=== PATIENT | male | born 1950 | race Caucasian/White ===

== ENCOUNTER → 2017-08-24 11:14 | Outpatient (CLI) | payer MEDICARE, OTHER, SELFPAY ==
[2017-08-24 13:02] LABS: Hemoglobin A1c 7.5 % (4.2-6.3)
[2017-08-24 13:22] LABS: AST(SGOT) 17 U/L (15-37); Alanine Aminotransfer ALT/SGPT 36 U/L (16-61); Albumin, Serum 3.8 g/dL (3.2-5.0); Alkaline Phosphatase 61 U/L (45-117); Anion Gap 8 (5-15); BUN 21 mg/dL (7-18); BUN/Creat Ratio 21.3 RATIO (10-20); Calcium,Total 8.6 mg/dL (8.5-10.1); Chloride 103 mmol/L (98-107); Cholesterol 200 mg/dL (200); Creatinine, Serum 0.99 mg/dL (0.70-1.30); EST Glomerular Filtration Rate 80 mL/min (>60); Est Glom Filt Rate - Afr Amer 97 mL/min (>60); Globulin 3.9 g/dL (2.2-4.2); Glucose 145 mg/dL (74-106); High Density Lipoprotein 35 mg/dL; PSA,Total- Diagnostic 8.58 ng/mL (0.0-4.0); Potassium 4.2 mmol/L (3.5-5.1); Protein, Total 7.7 g/dL (6.4-8.2); Sodium Level 137 mmol/L (136-145); Triglycerides 424 mg/dL
[2017-08-24 14:04] LABS: Microalbumin,Random Urine < 5.0 mg/L (NO RANGE EST.)
== END ==
PROVIDERS: Family Provider Family Medicine; PCP Family Medicine; Visit Provider Nurse Practitioner
DX: E11.9 Type 2 diabetes mellitus without complications (principal); R97.20 Elevated prostate specific antigen [PSA]
CPT/HCPCS: 36415; 80053; 80061; 82043; 82570; 83036; 84153

== ENCOUNTER → 2017-10-06 06:25 | Outpatient (CLI) | payer MEDICARE, OTHER, SELFPAY ==
--- NOTE | 2017-10-06 07:00 | MRI_ITS ---
STUDY: MR PELVIS WITH T WITHOUT CONTRAST REASON FOR EXAM: Male, 66 years old. ELEVATED PROSTATE SPECIFIC ANTIGEN TECHNIQUE: Standardized fat and water weighted pulse sequences were obtained in all 3 orthogonal planes, pre-and post contrast administration. 11 ml of Gadavist contrast material was administered intravenously for the contrast portion of the examination. COMPARISON: None. FINDINGS: Normal urinary bladder. Normal visualized colon. Prostate gland: The anterior fibromuscular stroma and central zone appear intact. The central gland demonstrates normal signal characteristics. Rectum is unremarkable. Levator ani muscle is not disrupted. The distal urethra is surrounded by the low T2 signal intensity muscle which is the external urethral sphincter as noted on the coronal images. The penile bulb is embraced by an intact inferomedial levator ani muscle. No areas of abnormal enhancement. Normal visualized neurovascular bundles. Diffuse enlargement of the prostate gland. There is heterogeneous enhancement of the prostate gland. There is no pelvic fluid. There is no pelvic mass lesion or lymphadenopathy. Normal visualized pelvic arteries. Normal osseous structures. Normal abdominal wall. MRI/Pelvis W/WO Contrast IMPRESSION: Prostatomegaly. No evidence for neoplasm. Electronically Signed: Rich Parikh MD at 23:36 EDT , Service support ,
== END ==
PROVIDERS: Family Provider Family Medicine; PCP Family Medicine; Visit Provider Urology
DX: R97.20 Elevated prostate specific antigen [PSA] (principal)
CPT/HCPCS: 72197; A9585

== ENCOUNTER → 2017-10-13 15:53 | Outpatient (CLI) | payer MEDICARE, OTHER, SELFPAY ==
--- NOTE | 2017-10-13 | IMM_PTH ---
PATIENT: TESHA KELLEY LOC: [place] U#:[id number] AGE/SX: 74/M ROOM: RE10/13/[address]: Dr. Galen Chacko MD : 1950 BED: DIS: SPEC #: [id number] RECD: 10/17/17 14:03 STATUS: RONNY REQi #: [id number] BARRETT: 10/13/17 00:[address]: Galen Chacko DEPT: IMMUNOHISTOCHEMISTRY RECD BY: Jodee Kerr ENTERED: 10/17/17 14:05 SP TYPE: IMMUNO OTHR DR: Dr. Rafael Doe MD Tissues: A - PROSTATE RIGHT C - PROSTATE RIGHT D - PROSTATE LEFT E - PROSTATE LEFT Procedures: 34BE12 (add) P40 (add) 34BE12 (initial) PHYSICIAN & INSTITUTION [place] [id number] SPECIMEN INFORMATION: Tissue Source: A - Right base, C - Right apex, D - Left base, E - Left mid Clinical Info: BPH with obstruction, elevated PSA, frequency of urination, decreased force of stream Specimen Number: [id number] A, C, D & E CPT code: 37024, 97908 x7 METHODOLOGY: Deparaffinized sections of prefer/formalin-fixed tissue or PAP/DQ stained slides are incubated with monoclonal/polyclonal antibodies/oligonucleotide probes. Localization is made via biotin free immunoperoxidase method. Appropriate controls are performed and reacted as expected. Results on target cell population are indicated in the following table: RESULTS: ANTIBODY / CLONE RESULT Block A P40 (BC28) positive 34BE12 (34BE12) positive Block C P40 (BC28) negative 34BE12 (34BE12) negative Block D P40 (BC28) positive 34BE12 (34BE12) positive Block E P40 (BC28) positive 34BE12 (34BE12) positive These tests were developed and their performance characteristics determined by [facility]. They may not have been cleared or approved by the U.S. Food and Drug Administration. The FDA has determined that such clearance or approval is not necessary. INTERPRETATION: A. Right prostate, base, core biopsy: Focal high-grade prostatic intraepithelial neoplasia (HGPIN). C. Right prostate, apex, core biopsy: Focal atypical small acinar proliferation. D. Left prostate, base, core biopsy: Focal high-grade prostatic intraepithelial neoplasia (HGPIN). E. Left prostate, mid, core biopsy: Focal high-grade prostatic intraepithelial neoplasia (HGPIN). AM:rabia 10/18/17
--- NOTE | 2017-10-13 08:55 | PROSBIL_PTH ---
PATIENT: TESHA KELLEY LOC: [place] U#:[id number] AGE/SX: 74/M ROOM: RE10/13/[address]: Dr. Galen Chacko MD : 1950 BED: DIS: SPEC #: [id number] RECD: 10/13/17 15:24 STATUS: RONNY GILLIAN #: [id number] BARRETT: 10/13/17 08:[address]: Galen Chacko DEPT: SURGICAL PATHOLOGY RECD BY: Edgardo Arnold ENTERED: 10/16/17 10:11 SP TYPE: PROST BX ERNESTO DR: Dr. Rafael Doe MD [facility] Tissues: A - PROSTATE RIGHT B - PROSTATE RIGHT C - PROSTATE RIGHT D - PROSTATE LEFT E - PROSTATE LEFT F - PROSTATE LEFT Procedures: PROSTATE BX HEADER OPERATION: Transrectal ultrasound guided needle biopsy of prostate PRE-OP DIAGNOSIS: BPH with obstruction; elevated PSA; frequency of urination; decreased force of stream TISSUE SUBMITTED: A - Right base, B - Right mid, C - Right apex, D - Left base, E - Left mid, F - Left apex MICROSCOPIC DIAGNOSIS A. Right prostate, base, core biopsy: Focal high-grade prostatic intraepithelial neoplasia (HGPIN). Glandular atrophy, mild chronic inflammation and focal acute inflammation. B. Right prostate, mid, core biopsy: Focal glandular atrophy and mild chronic inflammation. C. Right prostate, apex, core biopsy: Focal atypical small acinar proliferation. D. Left prostate, base, core biopsy: Focal high-grade prostatic intraepithelial neoplasia (HGPIN). Mild chronic inflammation. E. Left prostate, mid, core biopsy: Focal high-grade prostatic intraepithelial neoplasia (HGPIN). Focal glandular atrophy and mild chronic inflammation. F. Left prostate, apex, core biopsy: Focal glandular atrophy and mild chronic inflammation. AM:rabia 10/17/17 COMMENT A, C, D & E - Immunohistochemistry ([id number]) supports the above diagnosis. MICROSCOPIC DESCRIPTION Slides are reviewed. GROSS DESCRIPTION A - Received is one container labeled with the patient's name and not further designated. The specimen consists of two elongated fragments of light neely-white soft tissue each measuring 1.5 cm in length and 0.1 cm in diameter. The specimen is totally submitted in one cassette. B - Received is one container labeled with the patient's name and not further designated. The specimen consists of two elongated fragments of light neely-white soft tissue each measuring 1.5 cm in length and 0.1 cm in diameter. The specimen is totally submitted in one cassette. C - Received is one container labeled with the patient's name and not further designated. The specimen consists of two elongated fragments of light neely-white soft tissue each measuring 1 cm in length and 0.1 cm in diameter. The specimen is totally submitted in one cassette. D - Received is one container labeled with the patient's name and not further designated. The specimen consists of two elongated fragments of light neely-white soft tissue each measuring 1 cm in length and 0.1 cm in diameter. The specimen is totally submitted in one cassette. E - Received is one container labeled with the patient's name and not further designated. The specimen consists of two elongated fragments of light neely-white soft tissue each measuring 1.5 cm in length and 0.1 cm in diameter. The specimen is totally submitted in one cassette. F - Received is one container labeled with the patient's name and not further designated. The specimen consists of two elongated fragments of light neely-white soft tissue each measuring 1 cm in length and 0.1 cm in diameter. The specimen is totally submitted in one cassette. / AM:rabia 10/16/17 TC:3 CPT: G0146
== END ==
PROVIDERS: Family Provider Family Medicine; PCP Family Medicine; Visit Provider Urology
DX: N40.1 Benign prostatic hyperplasia with lower urinary tract symptoms (principal); N13.8 Other obstructive and reflux uropathy; R35.0 Frequency of micturition; R39.12 Poor urinary stream; R97.20 Elevated prostate specific antigen [PSA]
CPT/HCPCS: 88305; 88341; 88342; G0416

== ENCOUNTER → 2019-03-14 15:58 | Outpatient (CLI) | payer MEDICARE, OTHER, SELFPAY ==
[2018-03-27 13:31] VITALS: BMI 38.0
== END ==
PROVIDERS: Family Provider Family Medicine; PCP Family Medicine; Referring Provider Dermatology; Visit Provider Dermatology
DX: L60.0 Ingrowing nail (principal)
CPT/HCPCS: 87070; 87077; 87186; 87205

== ENCOUNTER → 2020-02-24 10:43 | Outpatient (CLI) | payer MEDICARE, OTHER, SELFPAY ==
[2020-01-08 09:55] VITALS: BMI 37.8
--- NOTE | 2020-02-24 10:44 | ECHOD_ITS ---
Reason For Study: Dyspnea/SOB Procedure This was a 2D Doppler, Color Flow transthoracic echocardiogram. Exam performed in department. Left Ventricle Normal LV size. Left ventricular systolic function is normal. The estimated ejection fraction is 60 %. Stage 1 diastolic dysfunction. No regional wall motion abnormalities noted. Right Ventricle Normal RV size. Normal systolic function. Atria Normal left atrium. Normal right atrium. Mitral Valve Normal mitral valve. Tricuspid Valve Normal tricuspid valve. Mild (1+) tricuspid valve insufficiency. Pulmonary artery systolic pressure is 28 mmHg. Aortic Valve Trisinus/trileaflet aortic valve. Pulmonic Valve Normal pulmonic valve. Great Vessels Normal aortic root. The pulmonary artery is normal size. Normal inferior vena cava. Pericardium/Pleural No pericardial effusion. MMode/2D Measurements & Calculations LVIDd: 5.5 cm IVSd: 1.0 cm Ao root diam: 3.3 cm LVIDs: 3.5 cm LVPWd: 1.1 cm RVDd: 3.0 cm FS: 35.3 % LAV(MOD-bp): 32.2 ml LVAd ap4: 27.7 cm2 SV(MOD-sp4): 53.5 ml LAV(MOD-bp) Indexed: 15.0 ml/m2 EDV(MOD-sp4): 80.3 ml LAV(MOD-sp2): 40.4 ml EDV(sp4-el): 85.1 ml LAV(MOD-sp4): 24.8 ml LVAs ap4: 14.5 cm2 ESV(MOD-sp4): 26.8 ml ESV(sp4-el): 27.3 ml EF(MOD-sp4): 66.7 % EF(sp4-el): 67.9 % SV(sp4-el): 57.8 ml LA A4 area: 12.4 cm2 LA dimension(2D): 3.7 cm RA A4 area: 10.0 cm2 Doppler Measurements & Calculations MV E max ranjit: 60.1 cm/sec Lat Peak E' Ranjit: 5.8 cm/sec Med Peak E' Ranjit: 3.8 cm/sec MV A max ranjit: 101.8 cm/sec E/E' lat: 10.3 E/E' med: 15.8 MV E/A: 0.59 Ao V2 max: 110.2 cm/sec LV V1 max: 84.2 cm/sec PA V2 max: 104.2 cm/sec Ao max P.9 mmHg LV V1 max P.8 mmHg Ao V2 mean: 73.8 cm/sec Ao mean P.4 mmHg Ao V2 VTI: 22.3 cm TR max ranjit: 247.0 cm/sec TR max P.4 mmHg Interpretation Summary Normal LV size. Left ventricular systolic function is normal. The estimated ejection fraction is 60 %. Stage 1 diastolic dysfunction. Pulmonary artery systolic pressure is 28 mmHg. Ordering Physician: Bo Tierney Referring Physician: Rafael Doe Performed By: Maeve Moralez RDCS, RVT
== END ==
PROVIDERS: PCP Family Medicine; Referring Provider Internal Medicine Cardiovascular Disease; Visit Provider Internal Medicine Cardiovascular Disease
DX: I10 Essential (primary) hypertension (principal); R06.00 Dyspnea, unspecified
CPT/HCPCS: 93306

== ENCOUNTER → 2020-08-04 13:01 | Outpatient (CLI) | payer MEDICARE, OTHER, SELFPAY ==
[2020-03-27 10:18] VITALS: BMI 37.9
--- NOTE | 2020-08-04 13:08 | RAD_ITS ---
STUDY: X-RAY - LUMBAR SPINE REASON FOR EXAM: Male, 69 years old. LOWER BACK PAIN, GETTING WORSE TECHNIQUE: 3 view(s) of the lumbar spine were obtained. COMPARISON: None FINDINGS: There is straightening of the normal lumbar lordosis. There is no substantial scoliosis. There is a normal alignment of the vertebrae. There is multilevel endplate spondylosis of the lumbar vertebrae. There is multi-level degenerative disc disease with multi-level disc space narrowing. Facet joint osteoarthritis. The soft tissue structures are unremarkable. RAD/Lumbar Spine 2 or 3 Views IMPRESSION: Degenerative changes of the spine, as detailed above. Straightening of the normal lumbar lordosis. Electronically Signed: Tommy Mendiola MD at 15:48 EST , Service support ,
== END ==
PROVIDERS: PCP Family Medicine; Referring Provider Family Medicine; Visit Provider Family Medicine
DX: M54.5 Low back pain (principal)
CPT/HCPCS: 72100

== ENCOUNTER → 2020-10-06 14:37 | Outpatient (CLI) | payer MEDICARE, OTHER, SELFPAY ==
[2020-03-27 10:18] VITALS: BMI 37.9
--- NOTE | 2020-10-06 15:00 | RAD_ITS ---
STUDY: X-RAY - LUMBOSACRAL SPINE REASON FOR EXAM: Male, 69 years old. Pain, numbness and weakness. TECHNIQUE: 6 view(s) of the lumbosacral spine including lateral flexion and extension views were obtained on 7 images. COMPARISON: 08/04/2020 FINDINGS: Normal lumbar lordosis. There is no substantial scoliosis. There is normal alignment of the vertebrae. Limited flexion and extension with no abnormal motion. Normal vertebral bodies and endplates. Diffuse facet sclerosis. Stable intervertebral disc space narrowing at L2-3, L3-4, L4-5 and to the greatest degree at L5-S1 with osteophyte formation most marked at L5-S1. Normal bilateral sacral ala, sacroiliac joints, and visualized sacrum. Vascular calcification. RAD/L/S Spine w Bend Min 6 Vw IMPRESSION: Stable diffuse moderate lumbar spondylosis most marked at L5-S1. Limited flexion and extension without abnormal motion. Electronically Signed: Migel Bergman MD at 12:42 EDT , Service support ,
[2020-10-06 16:27] LABS: Anion Gap 8 (5-15); BUN 17 mg/dL (7-18); BUN/Creat Ratio 12.9 RATIO (10-20); Calcium,Total 9.4 mg/dL (8.5-10.1); Chloride 101 mmol/L (98-107); Creatinine, Serum 1.32 mg/dL (0.70-1.30); EST Glomerular Filtration Rate 57 mL/min (>60); Est Glom Filt Rate - Afr Amer 69 mL/min (>60); Glucose 205 mg/dL (74-106); Potassium 4.4 mmol/L (3.5-5.1); Sodium Level 135 mmol/L (136-145)
--- NOTE | 2020-10-06 16:45 | MRI_ITS ---
STUDY: MRI LUMBAR SPINE WITHOUT CONTRAST REASON FOR EXAM: Male, 69 years old. Lumbar radiculopathy TECHNIQUE: Standardized fat and water weighted pulse sequences were obtained in the sagittal and axial planes. COMPARISON: Lumbar spine x-rays 10/06/2020 FINDINGS: No evidence for acute fracture or subluxation. Interosseous hemangioma within the L4 vertebral body T12-L1: Normal endplates. Normal disc height, desiccation and normal morphology. Normal bilateral facet joints. Normal central canal and bilateral lateral recesses. Normal bilateral intervertebral neural foramina. Normal lumbar lordosis. There is no substantial scoliosis. Normal conus medullaris that terminates at T12-L1 L1-2: Normal endplates. Normal disc height, desiccation and normal morphology. Normal bilateral facet joints. Normal central canal and bilateral lateral recesses. Normal bilateral intervertebral neural foramina. L2-3: Normal endplates. Normal disc height, desiccation and normal morphology. Normal bilateral facet joints. Normal central canal and bilateral lateral recesses. Normal bilateral intervertebral neural foramina. L3-4: Normal endplates. Normal disc height, desiccation and minor annular bulge.. Facet arthropathy and thickening of ligamenta flava.. Normal central canal and mild bilateral recess stenosis. Moderate bilateral neuroforaminal stenosis exaggerated by shortened pedicles L4-5: Grade 1 spondylolisthesis Normal endplates. Normal disc height, desiccation and minor bulging disc osteophyte complex. Facet arthropathy and thickening of ligamenta flava.. Moderate narrowing the central canal.. Severe bilateral recess and neuroforaminal stenosis exaggerated by shortened pedicles L5-S1: Degenerative endplate changes. Narrowed disc space with desiccation of disc and mild bulging disc osteophyte complex. Bilateral facet arthropathy. Mild narrowing the central canal. Moderate bilateral recess and severe neuroforaminal stenosis exaggerated by shortened pedicles.. Normal visualized sacral ala. Normal visualized paraspinous soft tissue structures. Findings are similar to prior study given differences in imaging modalities MRI/Spine Lumbar (Routine) IMPRESSION: No evidence for acute fracture or other significant bony pathology. Moderate spondylosis and multilevel spinal stenosis secondary to disc disease and bony hypertrophy most severe at L4-5 and L5-S1 exaggerated by shortened pedicles Electronically Signed: Hugo Smith MD at 16:24 EDT , Service support ,
== END ==
PROVIDERS: Physician Assistant Medical; PCP Family Medicine
DX: M54.16 Radiculopathy, lumbar region (principal); I10 Essential (primary) hypertension; E78.5 Hyperlipidemia, unspecified; R06.00 Dyspnea, unspecified
CPT/HCPCS: 36415; 72110; 72114; 72148; 80048

== ENCOUNTER 2021-07-27 06:35 | Outpatient (CLI) | payer MEDICARE, OTHER, SELFPAY ==
[2021-07-27 07:38] LABS: Absolute Lymphocyte Count 2.77 X10^3/uL (0.83-4.51); Basophil# 0.07 X10^3/uL; Basophil% 0.9 % (0-1); Eosinophil# 0.26 X10^3/uL; Eosinophils% 3.3 % (0-5); Hemoglobin 13.6 g/dL (13.0-16.5); Lymphocyte # 2.77 X10^3/ul (0.83-4.51); Lymphocyte % 35.6 % (19-41); Mean Corp Hgb Conc 33.2 g/dL (32-36); Mean Corpuscular Hgb 28.8 pg (27.0-32.0); Mean Corpuscular Volume 86.7 fL (80-94); Mean Platelet Vol. 10.3 fl (6.2-12.0); Monocyte# 0.62 X10^3/uL; NRBC Flagged by Analyzer 0 % (0-5); Neutrophil # 4.01 X10^3/uL (2.7-7.7); Neutrophil % 51.6 % (47-70); Platelet Count 244 K/mm3 (150-450); RBC Distribution Width CV 14.1 % (11.6-14.6); RBC Distribution Width SD 45.1 fl (35.1-43.9); Red Blood Count 4.73 M/mm3 (4.6-6.2); White Blood Count 7.8 K/mm3 (4.4-11.0)
[2021-07-27 08:14] LABS: AST(SGOT) 19 U/L (15-37); Alanine Aminotransfer ALT/SGPT 42 U/L (16-61); Albumin, Serum 3.7 g/dL (3.2-5.0); Alkaline Phosphatase 83 U/L (45-117); Anion Gap 5 (5-15); BUN 20 mg/dL (7-18); BUN/Creat Ratio 18.9 RATIO (10-20); Bilirubin, Direct 0.06 mg/dL (0.00-0.30); Calcium,Total 9.4 mg/dL (8.5-10.1); Chloride 101 mmol/L (98-107); Cholesterol 254 mg/dL (200); Creatinine, Serum 1.06 mg/dL (0.70-1.30); EST Glomerular Filtration Rate 73 mL/min (>60); Est Glom Filt Rate - Afr Amer 88 mL/min (>60); Globulin 4.1 g/dL (2.2-4.2); Glucose 254 mg/dL (74-106); High Density Lipoprotein 36 mg/dL; Potassium 4.2 mmol/L (3.5-5.1); Protein, Total 7.8 g/dL (6.4-8.2); Sodium Level 134 mmol/L (136-145); Triglycerides 737 mg/dL
--- NOTE | 2021-07-27 12:16 | STRESSREP ---
Stress Test Report Pharmacologic myocardial perfusion stress test. 70-year-old male with a history of chest pain. Medications glipizide Metformin amlodipine losartan. Stress protocol: Resting EKG demonstrates normal sinus rhythm with a rate of 74 bpm normal intervals are noted resting blood pressure is 160/78 mmHg. 0.4 mg of regadenoson was infused per usual protocol.Intravenous saline flush injection continuous EKG monitoring was performed. The maximum heart rate attained was 92 bpm which was 62% of max impact at heart rate the maximum workload was 1 metabolic equivalent. At rest there were no ST or T wave changes noted to suggest abnormal flow reserve and at peak infusion nonspecific ST changes were noted with did not meet the criteria for ischemia. No clinical angina was noted. Myocardial perfusion protocol. 14.8 mCi of technetium 99m sestamibi was injected at rest. 0.4 mg of regadenoson was infused per usual protocol. At peak infusion 45.0 mCi of technetium 99m sestamibi was injected stress images were obtained stress and rest images were reconstructed and compared in the short axis vertical long and horizontal long axis. Gated images were also obtained. Perfusion SPECT analysis: Review of the stress images demonstrate normal uptake of tracer noted in all areas of myocardium. The resting images similarly demonstrate normal uptake of tracer noted in all areas of the myocardium. No previous infarct is noted. Gated SPECT analysis: The gated ejection fraction is noted to be 70%. Conclusion: Normal pharmacologic myocardial perfusion stress test. Preserved ejection fraction.
== END 2021-07-27 23:59 | disposition short-term general hospital (02) ==
LOC: CVS 06:40
PROVIDERS: PCP Family Medicine; Referring Provider Nurse Practitioner Gerontology; Visit Provider Nurse Practitioner Gerontology
DX: R07.9 Chest pain, unspecified (principal); I10 Essential (primary) hypertension; R53.83 Other fatigue; E78.5 Hyperlipidemia, unspecified
CPT/HCPCS: 36415; 78452; 80048; 80061; 80076; 85025; 93017; A9500; A4216; J2785

== ENCOUNTER → 2021-11-11 | Outpatient (CLI) | payer MEDICARE, OTHER, SELFPAY ==
[2021-11-11 08:39] LABS: AST(SGOT) 13 U/L (15-37); Alanine Aminotransfer ALT/SGPT 27 U/L (16-61); Albumin, Serum 3.8 g/dL (3.2-5.0); Alkaline Phosphatase 71 U/L (45-117); Cholesterol 170 mg/dL (200); Globulin 3.7 g/dL (2.2-4.2); High Density Lipoprotein 33 mg/dL; Protein, Total 7.5 g/dL (6.4-8.2); Triglycerides 323 mg/dL; Very Low Density Lipoprotein 65 mg/dL (5-40)
== END | disposition home or self-care (01) ==
PROVIDERS: PCP Family Medicine; Visit Provider Nurse Practitioner Gerontology
DX: E78.5 Hyperlipidemia, unspecified (principal)
CPT/HCPCS: 36415; 80061; 80076

== ENCOUNTER → 2022-05-16 | Outpatient (CLI) | payer MEDICARE, OTHER, SELFPAY ==
[2022-05-16 07:54] LABS: AST(SGOT) 27 U/L (15-37); Alanine Aminotransfer ALT/SGPT 30 U/L (16-61); Albumin, Serum 3.7 g/dL (3.2-5.0); Alkaline Phosphatase 78 U/L (45-117); Bilirubin, Direct 0.05 mg/dL (0.00-0.30); Cholesterol 230 mg/dL (200); Globulin 3.8 g/dL (2.2-4.2); High Density Lipoprotein 32 mg/dL; Protein, Total 7.5 g/dL (6.4-8.2); Triglycerides 857 mg/dL
== END | disposition home or self-care (01) ==
LOC: LAB 07:16
PROVIDERS: PCP Family Medicine; Referring Provider Nurse Practitioner Gerontology; Visit Provider Nurse Practitioner Gerontology
DX: E78.5 Hyperlipidemia, unspecified (principal)
CPT/HCPCS: 36415; 80061; 80076

== ENCOUNTER → 2023-01-16 | Outpatient (CLI) | payer MEDICARE, OTHER, SELFPAY ==
[2023-01-16 08:20] LABS: AST(SGOT) 18 U/L (15-37); Alanine Aminotransfer ALT/SGPT 26 U/L (16-61); Albumin, Serum 3.5 g/dL (3.2-5.0); Alkaline Phosphatase 70 U/L (45-117); Bilirubin, Direct 0.14 mg/dL (0.00-0.30); Cholesterol 183 mg/dL (200); Globulin 3.8 g/dL (2.2-4.2); High Density Lipoprotein 35 mg/dL; Protein, Total 7.3 g/dL (6.4-8.2); Triglycerides 431 mg/dL
== END | disposition home or self-care (01) ==
LOC: LAB 06:49
PROVIDERS: Nurse Practitioner Gerontology; PCP Family Medicine; Referring Provider Family Medicine; Visit Provider Family Medicine
DX: R97.20 Elevated prostate specific antigen [PSA] (principal); E78.5 Hyperlipidemia, unspecified
CPT/HCPCS: 36415; 80061; 80076; 84153

== ENCOUNTER → 2023-02-08 | Outpatient (CLI) | payer MEDICARE, OTHER, SELFPAY ==
[2023-02-08 11:29] LABS: Absolute Lymphocyte Count 1.81 X10^3/uL (0.83-4.51); Absolute Neutrophil Count 2.9 X10^3/uL (2.0-7.7); Basophil# 0.07 X10^3/uL; Basophil% 1.2 % (0-1); Eosinophil# 0.13 X10^3/uL; Eosinophils% 2.3 % (0-5); Hemoglobin 13.1 g/dL (13.0-16.5); Lymphocyte # 1.81 X10^3/ul (0.83-4.51); Lymphocyte % 31.8 % (19-41); Mean Corpuscular Hgb 29.1 pg (27.0-32.0); Mean Corpuscular Volume 91.1 fL (80-94); Mean Platelet Vol. 10.2 fl (6.2-12.0); Monocyte# 0.81 X10^3/uL; Monocyte% 14.2 % (0-10); NRBC Flagged by Analyzer 0 % (0-5); Neutrophil # 2.85 X10^3/uL (2.7-7.7); Platelet Count 243 K/mm3 (150-450); RBC Distribution Width CV 14.5 % (11.6-14.6); RBC Distribution Width SD 48.3 fl (35.1-43.9); White Blood Count 5.7 K/mm3 (4.4-11.0)
[2023-02-08 11:51] LABS: BNP,B-Type NATRIURETIC PEPTIDE 13.5 pg/mL (0-100)
[2023-02-08 12:02] LABS: Anion Gap 3 (5-15); BUN 14 mg/dL (7-18); BUN/Creat Ratio 12.7 RATIO (10-20); Calcium,Total 8.8 mg/dL (8.5-10.1); Chloride 104 mmol/L (98-107); EST Glomerular Filtration Rate 70 mL/min (>60); Est Glom Filt Rate - Afr Amer 84 mL/min (>60); Glucose 221 mg/dL (74-106); Potassium 4.6 mmol/L (3.5-5.1); Sodium Level 136 mmol/L (136-145); Thyroid Stim Hormone (TSH) 1.94 uIU/mL (0.358-3.74)
== END | disposition home or self-care (01) ==
LOC: LAB 10:24
PROVIDERS: PCP Family Medicine; Referring Provider Nurse Practitioner Gerontology; Visit Provider Nurse Practitioner Gerontology
DX: R06.00 Dyspnea, unspecified (principal)
CPT/HCPCS: 36415; 80048; 83880; 84443; 85025

== ENCOUNTER → 2023-03-06 | Outpatient (CLI) | payer MEDICARE, OTHER, SELFPAY ==
--- NOTE | 2023-03-06 07:50 | MRI_ITS ---
STUDY: MR PELVIS WITH AND WITHOUT CONTRAST (PROSTATE) REASON FOR EXAM: Male, 72 years old. Elevated PSA TECHNIQUE: Standardized multiparametric prostate MRI with T1, T2, DWI/ADC sequences were obtained in 3 orthogonal planes, and dynamic contrast enhancement sequences. 21 ml of clariscan contrast material was administered intravenously for the contrast portion of the examination. COMPARISON: None. FINDINGS: The prostate volume measures 110 mm3. The contours of the prostate gland are lobulated. There is mass effect on the bladder base. The transition zone is heterogenous. PI-RADS DWI score 2 - Hypointense within a BPH nodule on ADC. PI-RADS T2W score 2 - A mostly encapsulated nodule OR a homogeneous circumscribed nodule without encapsulation (atypical nodule) or a homogeneous mildly hypointense area between nodules.. Contrast enhancement no early or contemporaneous enhancement; or diffuse multifocal enhancement NOT corresponding to a focal finding on T2W and/or DWI or focal ehancement responding to a lesion demonstrating features of BPH onT2WI (including features of extruded BPH in the PZ). The peripheral zone is heterogenous. PI-RADS DWI score 1 - No abnormality (normal) on ADC or high b-value DWI. PI-RADS T2W score 1 - Uniformaly hyperintense (normal). Contrast enhancement no early or contemporaneous enhancement; or diffuse multifocal enhancement NOT corresponding to a focal finding on T2W and/or DWI or focal enhancement responding to a lesion demonstrating features of BPH onT2WI (including features of extruded BPH in the PZ). The seminal vesicles demonstrate normal margins and T2 signal pattern. No mass lesion or invasion depicted. The rectoprostatic angles are normal. Urinary bladder is moderately distended without wall thickening/mass. The vascular structures of the are normal. The visualized hollow viscus structures are normal. No bone marrow edema or mass lesion depicted. MRI/Pelvis W/WO Contrast IMPRESSION: 1. PIRADS v2.1 2019 -- 2 - Low (clinically significant cancer is unlikely). Electronically Signed: Agusto Cedeno MD ([place]) at 10:47 EDT Reading Location ID and State: / [place] , Service support ,
== END | disposition home or self-care (01) ==
LOC: MRI 07:46
PROVIDERS: PCP Family Medicine; Referring Provider Urology; Visit Provider Urology
DX: R97.20 Elevated prostate specific antigen [PSA] (principal)
CPT/HCPCS: 72197; A9575

== ENCOUNTER → 2023-06-13 | Outpatient (CLI) | payer MEDICARE, OTHER, SELFPAY ==
--- NOTE | 2023-06-13 10:15 | RAD_ITS ---
INDICATION: HIP PAIN EXAMINATION/TECHNIQUE: X-RAY - XR Hips Bilateral with Pelvis when performed; 2 Views COMPARISON: No relevant prior comparison study available FINDINGS: PELVIC BONES: No displaced fracture, destructive or sclerotic lesions. Note that overlapping bowel shadows may however obscure fine detail. Sacroiliac joints are unremarkable. No widening of the pubic symphysis. HIPS: The articular structures are unremarkable. No displaced fracture seen in this frontal view. SOFT TISSUES: No soft tissue swelling or gas. RAD/Hips B/L min 2 views w/ Pelvis IMPRESSION: No evidence of displaced pelvic or hip fracture. Electronically Signed: Nikita Burrell MD at 17:59 EST ,
== END | disposition home or self-care (01) ==
LOC: RAD 10:12
PROVIDERS: PCP Family Medicine; Referring Provider Family Medicine; Visit Provider Family Medicine
DX: M25.559 Pain in unspecified hip (principal)
CPT/HCPCS: 73521

== ENCOUNTER → 2023-08-21 | Outpatient (CLI) | payer MEDICARE, OTHER, SELFPAY ==
--- OUTSIDE RECORDS SUMMARY | 2023-08-21 06:01 | XMS RPT_ITS | CCD ---
Author Name Unknown Address [address] [place] [address] Organization [facility] Care Team Providers Care General Intern Name Role Phone Tobias Solis MD Unavailable PRAVIN MARCUS Admitting Unavailable AMRIT, PRAVIN Enriquez Primary Care Unavailable AMRITPRAVIN CASE Attending Unavailable RAFAEL DOE Consulting Unavailable PROVIDER, UNKNOWN Consulting Unavailable PROVIDER, UNKNOWN Consulting Unavailable PROVIDER, UNKNOWN Consulting Unavailable AMRITPRAVIN WELLS Admitting Unavailable AMRIT, PRAVIN Enriquez Primary Care Unavailable AMRITPRAVIN WELLS Attending Unavailable RAFAEL DOE Consulting Unavailable PROVIDER, UNKNOWN Consulting Unavailable PROVIDER, UNKNOWN Consulting Unavailable PROVIDER, UNKNOWN Consulting Unavailable Rafael Doe MD Unavailable Yrn MCINTYRE, Dr. Milton Unavailable Ginna MCINTYRE, Dr. Aaron [facility]) Unavailable [facility] Unavailable Tera PIN OR CLIP FASTENER, Angelica Unavailable Ophthalmology Provider Unavailable Unavailab le [facility] Unavailable Quentin MCINTYRE, Dr. Pang Unavailable Radha ESPOSITO, Yuan Unavailable Avila MCINTYRE, Amie Enriquez Unavailable Jose Francisco MCINTYRE, Ruben Knapp Unavailable Josefa KENDALL, Tammi Adamson Unavailable [phone] Jessica VALDEZN, Shelley Unavailable Elise Mcpherson Unavailable Dread BREAD AND PASTRY BAKER, Chyna Colmenares Unavailable Unavailable Vic VALDEZN, Nette Enriquez Unavailable Unavailable Minh VALDEZN, Debby Nicole Unavailable Unavailab loki Willis, Suri C Unavailable Unavailable Wejosrerabran BREAD AND PASTRY BAKER, Rose Unavailable Unavailabl serena Chase BREAD AND PASTRY BAKER, Amanda N Unavailable Unavaila elan Sevilla RN, Tammi Knapp Unavailable Unavaila ble Bailey BREAD AND PASTRY BAKER, Lamar K Unavailable Unavai lable Hanson BREAD AND PASTRY BAKER, Peggy Unavailable Unavailable Gogoi (scribe), Hemanta Unavailable Unavaila ble Deric BREAD AND PASTRY BAKER, Alina Unavailable Unavailable Zaugg BREAD AND PASTRY BAKER, Jess Unavailable Unavailable Malcolm BREAD AND PASTRY BAKER, Cori Unavailable Unavailable Unavailable Unavailable Ramon BREAD AND PASTRY BAKER, Olman Unavailable Unavailable Allergies Allergy Classification Reported Allergen(s) Allergy Type Date of Onset Reaction(s) Facility (3 sources) predniSONE; Translations: [PREDNISONE] Drug Allergy 07-16-2009 [facility] Work Phone: (2 sources) sertraline; Translations: [ZOLOFT] Drug Allergy 07-16-2009 swelling [facility] Work Phone: (4 sources) [facility] (4 sources) [facility]. Medications Current Medications Medication Drug Class(es) Dates Sig (Normalized) Sig (Original) ALPRAZolam 0.25 mg oral tablet (4 sources) Benzodiazepine Start: 07-05-2021 take 1 tablet by mouth three times daily as needed ALPRAZolam 0.25 MG Oral Tablet ; 1 (one) Tablet three times daily as needed for anxiety for 0 days Quantity: 30 {Tablet} Refills: 0 Ordered: 05-Jul-2021 MD Rafael Doe Start: 05-Jul-2021 Comments: Medication taken as needed. [facility] 07/02/2021 Completed/Discontinued Medications Medication Drug Class(es) Dates Sig (Normalized) Sig (Original) [id number] 200 actuat albuterol 0.09 mg/actuat metered dose inhaler (4 sources) beta2-Adrenergic Agonist Start: 07-02-2013 End: 07-09-2014 take 2 puff(s) by inhalation every four to six hours PROAIR HFA, 108 (90 Base)MCG/ACT (Inhalation Aerosol Solution) ; 2 (two) puffs puffs Every 4-6 hours for 0 days Quantity: 1 {Unit(s)} Refills: 0 Ordered: 09-Jul-2014 ELEUTERIO Wilkinson Debby Nicole Start: 02-Jul-2013 End: 09-Jul-2014 Status: Inactive Comments: Maximum 12 puffs/day Problems Active Problems Problem Classification Problem Date Documented Date Episodic/Chronic Abdominal pain (4 sources) Abdominal pain; Translations: [Unspecified abdominal pain] 03-01-2017 Episodic Acute bronchitis (20 sources) Acute bronchitis; Translations: [Acute bronchitis, unspecified] 11-03-2015 Episodic Anxiety disorders (20 sources) Anxiety disorder; Translations: [Anxiety disorder, unspecified] 05-09-2023 Chronic Attention-deficit, conduct, and disruptive behavior disorders (4 sources) Attention deficit disorder without mention of hyperactivity 10-02-2012 Chronic Chronic kidney disease (20 sources) Chronic kidney disease stage 2; Translations: [Chronic kidney disease, stage 2 (mild)] 05-09-2023 Chronic Chronic obstructive pulmonary disease and bronchiectasis (19 sources) Bronchitis; Translations: [Bronchitis, not specified as acute or chronic] 09-08-2022 Episodic Crushing injury or internal injury (4 sources) Crushing injury of hand; Translations: [Crushing injury of unspecified hand, initial encounter] 12-16-2015 Episodic Diabetes mellitus without complication (20 sources) Diabetes mellitus; Translations: [Type 1 diabetes mellitus] Onset: 07-16-2009 12-21-2012 Chronic Disorders of lipid metabolism (20 sources) Hyperlipidemia; Translations: [Hypertriglyceridemia] Onset: 12-21-2012 12-21-2012 Chronic Esophageal disorders (20 sources) Gastroesophageal reflux disease; Translations: [Gastro-esophageal reflux disease without esophagitis] 05-09-2023 Chronic Essential hypertension (20 sources) Hypertensive disorder; Translations: [Benign essential hypertension] Onset: 07-16-2009 12-21-2012 Chronic Genitourinary symptoms and ill-defined conditions (4 sources) Urinary symptoms ; Translations: [Unspecified symptoms and signs involving the genitourinary system] 10-29-2018 Episodic Headache; including migraine (8 sources) Headache; Translations: [Headache] 02-06-2015 Episodic Hyperplasia of prostate (4 sources) Hypertrophy (benign) of prostate without urinary obstruction and other lower urinary tract symptom (LUTS) 11-05-2010 Chronic Immunizations and screening for infectious disease (7 sources) Encounter for immunization; Translations: [Requires vaccination] Onset: 09-14-2020 11-19-2014 Episodic Influenza (8 sources) Influenza; Translations: [Influenza due to unidentified influenza virus with other respiratory manifestations] 08-22-2019 Episodic Miscellaneous mental health disorders (4 sources) Psychosexual dysfunction associated with inhibited sexual excitement; Translations: [Other sexual dysfunction not due to a substance or known physiological condition] 11-05-2010 Chronic Mood disorders (20 sources) Depressive disorder; Translations: [Depressive disorder, not elsewhere classified] 05-09-2023 Chronic Nonspecific chest pain (9 sources) Precordial pain; Translations: [Chest pain] Onset: 12-21-2012 12-21-2012 Episodic Other aftercare (20 sources) Drug indicated; Translations: [Other care home (current) drug therapy] 08-31-2011 Episodic Other and unspecified benign neoplasm (4 sources) Lipoma (clinical); Translations: [Benign lipomatous neoplasm, unspecified] 09-28-2012 Episodic Other ear and sense organ disorders (8 sources) Impacted cerumen; Translations: [Impacted cerumen, unspecified ear] 05-09-2023 Episodic Other lower respiratory disease (8 sources) Cough; Translations: [Cough] 05-09-2023 Episodic Other non-traumatic joint disorders (8 sources) Hip pain; Translations: [Pain in unspecified hip] 05-09-2023 Episodic Other nutritional; endocrine; and metabolic disorders (1 source) Obesity; Translations: [Obesity, unspecified] Onset: 07-16-2009 07-16-2009 Chronic Other nutritional; endocrine; and metabolic disorders (12 sources) Obesity caused by energy imbalance; Translations: [Morbid (severe) obesity due to excess calories] 05-09-2023 Chronic Other nutritional; endocrine; and metabolic disorders (4 sources) Body mass index 30+ - obesity; Translations: [Body mass index (BMI) 38.0-38.9, adult] 09-29-2017 Chronic Other upper respiratory infections (12 sources) Sinusitis; Translations: [Chronic sinusitis, unspecified] 12-02-2021 Chronic Other upper respiratory infections (20 sources) Acute sinusitis; Translations: [Acute sinusitis, unspecified] 10-29-2018 Episodic Residual codes; unclassified (4 sources) Influenza vaccination declined; Translations: [Immunization not carried out because of patient refusal] 03-12-2019 Episodic Residual codes; unclassified (4 sources) Viral syndrome; Translations: [Other general symptoms and signs] 06-28-2013 Episodic Spondylosis; intervertebral disc disorders; other back problems (20 sources) Low back pain; Translations: [Lumbago] 05-09-2023 Episodic Sprains and strains (4 sources) Rotator cuff (capsule) sprain 04-07-2010 Episodic Unclassified (20 sources) Cardiovascular stress test abnormal; Translations: [Raised prostate specific antigen] Onset: 12-21-2012 12-21-2012 Episodic Unclassified (4 sources) [facility] Well Adult - In general the patient feels well with no complaints, has decreased energy level and is sleeping well (wakes frequently). The patient has a balanced diet and takes no supplemental vitamins & iron. The patient exercises none (active) and sleeps 8 hours per night. The patient denies having trouble with bathing, dressing/grooming, toileting, preparing meals and ambulating. The patient denies having trouble with grocery shopping, driving, use of telephone, housework, laundry, preparing/taking medications and finances. The patient does not have Healthcare Power of Product/Industry Consultant or Living Will. Note for [facility]CR Well Adult : reviewed by [facility] 01-24-2023 Unclassified (4 sources) [facility] Well Adult - In general the patient feels well with no complaints, has good energy level and is sleeping well. The patient has a balanced diet. The patient exercises daily (active- work on farm) and sleeps 8 hours per night. The patient denies having trouble with bathing, dressing/grooming, toileting, preparing meals and ambulating. The patient denies having trouble with grocery shopping, driving, use of telephone, housework, laundry, preparing/taking medications and finances. The patient does not have Healthcare Power of Product/Industry Consultant or Living Will. Note for [facility] Well Adult : pt wants another PSA last one was 7.88 01-06-2022 Unclassified (4 sources) Follow Up for Multiple Chronic Conditions - The patient is here for follow-up of anxiety, chronic kidney disease, depression, diabetes, GERD and hypertension. The patient always takes the prescribed medications. No side effects noted (needs refill). The patient has an active lifestyle but no regular exercise program. The patient's glucose levels are monitored daily (FSB 98. Checks once a day.), out of office blood pressure checks occur occasionally and dietary compliance is fairly good usually adhering to recommendations. The patient states that there are no vision changes or weakness (up to date with eye exam) and weight has decreased (down 4 pounds). Note for Multiple chronic conditions follow-up : reviewed by [facility] 09-07-2021 Unclassified (4 sources) Follow up for multiple chronic conditions - The patient is here for follow-up of diabetes, hypertension and other condition(s) (elevated PSA). The patient always takes the prescribed medications. No side effects noted. The patient has low activity level and no regular exercise program. The patient's glucose levels are monitored daily, out of office blood pressure checks occur occasionally and dietary compliance is fair often eating foods not normally recommended. The patient states that there is no recent angina or dyspnea, weight has decreased (down 7 lbs) and headaches are rarely noted. Note for Multiple chronic conditions follow-up : reviewed by [facility] 01-21-2021 Unclassified (3 sources) [facility] Visit 09-29-2017 Unclassified (3 sources) [ADDITIONAL REASON] Follow Up for Multiple Chronic Conditions - The patient is here for follow-up of depression, diabetes (Followed by Endocrinology.), GERD and hypertension (Pt does not think BP medi is working very well and would like to discuss switching mecication.). The patient always takes the prescribed medications. No side effects noted. The patient has an active lifestyle but no regular exercise program (and also doing some swimming several times a month.). The patient's glucose levels are monitored several time(s) per day (Checks sugars 1-2 times daily. Fasting averages between 180-210.), out of office blood pressure checks occur occasionally (Average for at home BP is 160-170/75-85.) and dietary compliance is fair often eating foods not normally recommended. The patient states that there is no recent angina or dyspnea, there are no vision changes or weakness (Pt has an eye appt next month.), weight has increased (up 9# from last visit.), mood is unchanged (Moods are up and down.) and they do not have headaches. The patient states that the disease has mild emotional impact. Note for Multiple chronic conditions follow-up : reviewed by [facility] 09-29-2017 Unclassified (4 sources) Follow-up for multiple chronic conditions (RAH) - The patient is here for follow-up of hypertension, diabetes, depression, GERD and other condition(s) (anxiety, ADD). The patient always takes the prescribed medications. No side effects noted. The patient has an active lifestyle but no regular exercise program. The patient's glucose levels are monitored several time(s) per day, out of office blood pressure checks occur occasionally (been increasing) and dietary compliance is fairly good usually adhering to recommendations. The patient has had numbness in the feet, but has not been seen by an coding specialist home health in the past 12 months, experienced changes in vision since the last visit, had tingling in the feet, had burning in the feet or experienced symptoms of low blood sugar more than once since the last rtn visit. The patient states that breathing effort is stable, there is no recent angina or dyspnea, there are no vision changes or weakness, mood is unchanged, they are still having trouble sleeping and headaches have been noticed occasionally (thinks he has a sinus infection for past 2-3 wks. Monday he had fever.). Note for Multiple chronic conditions follow-up : reviewed by [facility] 11-03-2015 Unclassified (4 sources) Follow Up for Multiple Chronic Conditions - The patient is here for follow-up of hypertension, diabetes, depression and GERD. The patient always takes the prescribed medications. Side effects noted (does not need refills). The patient has low activity level and no regular exercise program. The patient's glucose levels are monitored several time(s) per week (has been in the 300s), out of office blood pressure checks occur occasionally and dietary compliance is fair often eating foods not normally recommended. The patient states that there is no recent angina or dyspnea, there are no vision changes or weakness (is due for eye exam), weight has decreased (down 5 pounds since January) and headaches are rarely noted. Note for Multiple chronic conditions follow-up : He is concerned about prostate and wanted it checked today. Recent PSA was 5.2. He has increased urinary frequency but most likely from DM 07-01-2015 Unclassified (4 sources) [facility] Routine Follow up - The patient is here for follow-up of diabetes, depression, GERD and anxiety. The patient usually takes the prescribed medications. No side effects noted. (Needs refills. Complains of diarrhea with medications.) The patient has an active lifestyle but no regular program. The patient's out of office blood pressure checks occur occasionally and dietary compliance is fairly good usually adhering to recommendations. The patient states that weight has decreased (down 6 pounds.). The patient tests blood sugar weekly (3 to 4 times a week. FBS 249 yesterday.). 11-19-2014 Unclassified (4 sources) Follow Up for Multiple Chronic Conditions - The patient is here for follow-up of hypertension, diabetes and depression. The patient always takes the prescribed medications. No side effects noted (Does not use insuling and does not take Metformin as directed.). The patient engages in regular exercise program 3-5 times per week. The patient's glucose levels are monitored daily (Checks once a day), out of office blood pressure checks occur rarely and dietary compliance is fair often eating foods not normally recommended. The patient states that there is no recent angina or dyspnea, there are no vision changes or weakness (Is due for eye exam) and weight has increased (Up 4 pounds.). Note for Multiple chronic conditions follow-up : He takes metformin irregulalry due to SE of diarrhea. 07-09-2014 Unclassified (3 sources) Follow Up for Multiple Chronic Conditions - The patient is here for follow-up of hypertension, diabetes and other condition(s) (ADD). The patient always takes the prescribed medications. No side effects noted (Pt states he is no longer on Straterra. He takes Metfomrin 500 mg 2 tabs tid but rarely takes that many. Takes about 4 per day. He states he also does Glyburide 5 mg bid. He has never taken any insulin.). The patient has low activity level and no regular exercise program. The patient's out of office blood pressure checks occur frequently (Takes blood sugars once daily and average FBS is rarely under 200. This mornings fasting at home was 293. ) and dietary compliance is poor and they admit to eating without regard of guidelines. The patient states that there is no recent angina or dyspnea, there are no vision changes or weakness (DUe for yearly eye exam is Febuary.), weight has increased (Up about 5# from last visit.) and headaches have been noticed occasionally. Note for Multiple chronic conditions follow-up : Pt also having some numbness in both his feet. reviewed by [facility] 06-28-2013 Unclassified (3 sources) [ADDITIONAL REASON] Cold Symptoms - Symptoms include nasal congestion, runny nose, purulent discharge, ear pain (Left ear pain and very dizzy at times.), scratchy throat, dry cough, wheezing (and SOB at times. Pulse ox 97%.), fever (Fever has been as high as 103. Temp here today 99.1.), general malaise and headache. The onset was gradual 4 day(s) ago. The patient describes this as worsening. Current treatment includes non-prescription cold medication, a decongestant nasal spray and acetaminophen. Risk factors do not include smoking. The patient has been exposed to an individual with similar symptoms ( starting in with si,iliar symptoms.). Note for Upper respiratory infection : reviewed by [facility] 06-28-2013 Unclassified (4 sources) Follow Up for Multiple Chronic Conditions - The patient is here for follow-up of hypertension and diabetes. The patient usually takes the prescribed medications. No side effects noted (Is suppossed to be on Metformin 500 mg tid but he is experiencing quite a bit of diarrhea attributes that to his medication. He only takes 2 bid a lot of times. He chose not to start the insulin. Does want to discuss changing metformin to something different.). The patient has low activity level and no regular exercise program. The patient's glucose levels are monitored daily (Average fasting is 200-250. This morning fasting was 240.) and dietary compliance is fair often eating foods not normally recommended. The patient states that there is no recent angina or dyspnea, there are no vision changes or weakness (was recently at eye doctors and did have good check up. No change in prescription glasses.), weight has decreased (Down about 2# from last visit.) and they do not have headaches (but has a lot of ringing in ears.). Note for Multiple chronic conditions follow-up : Pt wanted to let you know that he had a colonscopy and endoscopy recently in [facility]. Had some precancerous polyops in colon and esophagus and they were removed and does not have to go [facility] for 2 years. He was also diagnosed with GERD.He has a lesion on back that he would like checked. It is starting to cause some discomfort and wondering if he needs to have it removed. reviewed by [facility] 09-28-2012 Unclassified (4 sources) Follow Up for Multiple Chronic Conditions - The patient is here for follow-up of hypertension and hyperlipidemia. The patient always takes the prescribed medications. No side effects noted (Is on Metformin 500 mg 2 tid. However he has only been taking 5 total. Cuts back on Suppertme Meformin to 1 pill.). The patient has an active lifestyle but no regular exercise program. The patient's glucose levels are monitored several time(s) per week (However he never does a fasting sugar and sugars are always high. Todays fasting here in office is 236.), out of office blood pressure checks occur occasionally (Average Bp at home is about 150/75-80) and dietary compliance is fair often eating foods not normally recommended. The patient states that there is no recent angina or dyspnea, weight has increased (Up about 5# from last visit.) and they do not have headaches. Note for Multiple chronic conditions follow-up : Pt is having some focusing Problems and needs to have eyes rechecked.Pt having an colonoscopy and endoscopy in May. He states has had an awlful dry cough all of a sudden and throat is just always dry.Pt has been fasting. Declines flu shot. reviewed by [facility] 05-11-2012 Unclassified (4 sources) Follow up for multiple chronic conditions - The patient is here for follow-up of hypertension (LAST LIPID 04/04) and diabetes (last a1c 04/05 and has been checking BS aroung 100- 170 did increase his medication himself). The patient always takes the prescribed medications. No side effects noted. The patient has an active lifestyle but no regular exercise program. The patient's out of office blood pressure checks occur occasionally and dietary compliance is fairly good usually adhering to recommendations. The patient states that breathing effort is more difficult (due to heat), there is no recent angina or dyspnea and they do not have headaches. Note for Follow up for multiple chronic conditions : has been having issues with coughing right now and wants his lungs listen to . About 2-3 weeks ago he started taking metformin 2 tabs 3 times. 01-03-2012 Unclassified (4 sources) Follow up for multiple chronic conditions - The patient is here for follow-up of hypertension and diabetes (last hgba1c 11/03 was 11.). The patient always takes the prescribed medications. No side effects noted. The patient has an active lifestyle but no regular exercise program. The patient's glucose levels are monitored several time(s) per day and out of office blood pressure checks occur frequently. Note for Follow up for multiple chronic conditions : No c/o at this time. reviewed by [facility] 03-30-2011 Unclassified (4 sources) Follow up for multiple chronic conditions - The patient is here for follow-up of hypertension and diabetes. The patient always takes the prescribed medications. No side effects noted. The patient has an active lifestyle but no regular exercise program. The patient's glucose levels are monitored daily (Has problems getting fasting sugars under 200.), out of office blood pressure checks occur rarely and dietary compliance is fair often eating foods not normally recommended. The patient states that weight has decreased (Weight coming down slowly.). Note for Follow up for multiple chronic conditions : Pt states he is up urinating a lot. Gets up about 3 times per night. Pt overall doing ok. COntinues to be SOB at times but this is nothing new. Denies chest pain. Pt saw Eye doctor within the last year. DOes not see a knot tier. Main concern today is the high blood sugars and up at night urinating. Has fasted except for coffee today in case blood work needed. reviewed by [facility] 11-05-2010 Unclassified (1 source) Cold Symptoms - Symptoms include nasal congestion, runny nose, purulent discharge, ear pain (Left ear pain and very dizzy at times.), scratchy throat, dry cough, wheezing (and SOB at times. Pulse ox 97%.), fever (Fever has been as high as 103. Temp here today 99.1.), general malaise and headache. The onset was gradual 4 day(s) ago. The patient describes this as worsening. Current treatment includes non-prescription cold medication, a decongestant nasal spray and acetaminophen. Risk factors do not include smoking. The patient has been exposed to an individual with similar symptoms ( starting in with si,iliar symptoms.). Note for Upper respiratory infection : reviewed by [facility] 06-28-2013 Unclassified (1 source) [ADDITIONAL REASON] Follow Up for Multiple Chronic Conditions - The patient is here for follow-up of hypertension, diabetes and other condition(s) (ADD). The patient always takes the prescribed medications. No side effects noted (Pt states he is no longer on Straterra. He takes Metfomrin 500 mg 2 tabs tid but rarely takes that many. Takes about 4 per day. He states he also does Glyburide 5 mg bid. He has never taken any insulin.). The patient has low activity level and no regular exercise program. The patient's out of office blood pressure checks occur frequently (Takes blood sugars once daily and average FBS is rarely under 200. This mornings fasting at home was 293. ) and dietary compliance is poor and they admit to eating without regard of guidelines. The patient states that there is no recent angina or dyspnea, there are no vision changes or weakness (DUe for yearly eye exam is Febuary.), weight has increased (Up about 5# from last visit.) and headaches have been noticed occasionally. Note for Multiple chronic conditions follow-up : Pt also having some numbness in both his feet. reviewed by [facility] 06-28-2013 Unclassified (1 source) Follow Up for Multiple Chronic Conditions - The patient is here for follow-up of depression, diabetes (Followed by Endocrinology.), GERD and hypertension (Pt does not think BP medi is working very well and would like to discuss switching mecication.). The patient always takes the prescribed medications. No side effects noted. The patient has an active lifestyle but no regular exercise program (and also doing some swimming several times a month.). The patient's glucose levels are monitored several time(s) per day (Checks sugars 1-2 times daily. Fasting averages between 180-210.), out of office blood pressure checks occur occasionally (Average for at home BP is 160-170/75-85.) and dietary compliance is fair often eating foods not normally recommended. The patient states that there is no recent angina or dyspnea, there are no vision changes or weakness (Pt has an eye appt next month.), weight has increased (up 9# from last visit.), mood is unchanged (Moods are up and down.) and they do not have headaches. The patient states that the disease has mild emotional impact. Note for Multiple chronic conditions follow-up : reviewed by [facility] 09-29-2017 Unclassified (1 source) [ADDITIONAL REASON] [facility] Visit 09-29-2017 Urinary tract infections (4 sources) Urinary tract infectious disease; Translations: [Urinary tract infection, site not specified] 06-14-2018 Episodic Past or Other Problems Problem Classification Problem Date Documented Da te Episodic/Chronic Diabetes mellitus without complication (4 sources) Diabetes mellitus without complication 05-09-2023 Unclassified (4 sources) Cold Symptoms - Note for Upper respiratory infection : Was seen in office 09-05-22 with diagnosis of bronchitis and given a Zpack. Pt called back 09-08-22 asking for another antibiotic and a 10 day course of Augmentin was given. Finished antibiotic yesterday. Is doing much better, has dry cough during the night. Would like to have lungs rechecked. reviewed by [facility] 09-20-2022 Unclassified (4 sources) Cold Symptoms - Symptoms include sneezing, nasal congestion, runny nose, sore throat (last week), dry cough, fever (did not check temperature but felt like he was running a fever.), chills, general malaise and headache, but do not include ear pain. The onset was sudden 10 day(s) ago. The symptoms occur constantly. The patient describes this as moderate in severity and worsening. Note for Upper respiratory infection : Tested positive for Covid 09-02-22, first time he has had it. 09-05-2022 Unclassified (4 sources) Cold Symptoms - Symptoms include nasal congestion, runny nose, ear fullness (tinnitus as well), sore throat (PND) and dry cough. The onset was gradual 4 day(s) ago. The symptoms occur frequently. The patient describes this as mild and worsening. Current treatment includes drops for his ear . Risk factors do not include smoking. The patient has been exposed to an individual with similar symptoms (), but has not been exposed to an individual with a cough, an individual with an upper respiratory infection, an individual with strep or secondhand smoke. Patient denies history of seasonal allergies, recurrent sinusitis, recurrent strep pharyngitis, asthma, tonsillectomy or recurrent ear infections. Note for Upper respiratory infection : reviewed by [facility] 12-02-2021 Unclassified (4 sources) Back pain - The onset of the back pain has been acute and has been occurring in an intermittent pattern for months. The course has been recurrent. The pain is characterized as a dull ache. The pain is located in the lower back and radiates to the lateral aspect of right leg. Note for Back pain : See previous note. I recommended PT but he declined. 08-31-2020 Unclassified (4 sources) Back pain - The onset of the back pain has been acute and has been occurring in a persistent pattern for 2 months. The course has been increasing (worse over the past three days. Moved a load of firewood in a wheelbarrow.). The pain is characterized as stabbing. The pain is located in the lower back and does not radiate. The symptoms have no relieving factors. Note for Back pain : Pain is in the R lower back. Pain does not go down leg but is getting groin pain. OTC meds have not helped. 08-03-2020 Unclassified (4 sources) Hypertension - The symptoms do not include chest pain, dyspnea on exertion, edema, fatigue, headache, palpitations, visual changes or shortness of breath. Note for Hypertension : Pt had EGD done earlier this week and his bp was high and surgeon was tempted to even do his scope. BP has been averaging 220/95. reviewed by [facility] 11-01-2019 Unclassified (4 sources) Cold Symptoms - Symptoms include sneezing, nasal congestion, runny nose, ear fullness, sore throat, productive cough, fever, chills, general malaise and headache, but do not include ear pain. The onset was sudden 5 day(s) ago. The symptoms occur constantly. The patient describes this as worsening. Current treatment includes non-prescription cold medication. Note for Upper respiratory infection : reviewed by [facility] 08-20-2019 Unclassified (4 sources) Cold Symptoms - Symptoms include nasal congestion, runny nose, sore throat, dry cough (is productive at times. Having trouble sleeping due to the cough. Has some chest tightness and congestion.), fever (has felt feverish), general malaise (body aches) and headache. The onset was 1 week(s) ago. The symptoms occur constantly. The patient describes this as worsening. Current treatment includes non-prescription cold medication, cough suppressants and acetaminophen. The patient has been exposed to an individual with an upper respiratory infection (grandchildren). 05-31-2019 Unclassified (4 sources) Follow Up for Multiple Chronic Conditions - The patient is here for follow-up of anxiety, depression, diabetes (Stopped endocrinology a couple of months ago.), GERD and hypertension. The patient always takes the prescribed medications. No side effects noted (needs refill). The patient has an active lifestyle but no regular exercise program. The patient's glucose levels are monitored daily (checks once a day. FBS 170 this morning.), out of office blood pressure checks occur rarely and dietary compliance is fairly good usually adhering to recommendations. The patient states that there is no recent angina or dyspnea, there are no vision changes or weakness (up to date with eye exam), weight has decreased (down 8 pounds) and headaches have been noticed occasionally. Note for Multiple chronic conditions follow-up : reviewed by [facility] 03-12-2019 Unclassified (2 sources) Cold Symptoms - Symptoms include nasal congestion, runny nose, ear pain (left side), sore throat, productive cough, chills, general malaise, headache and facial pain. The onset was sudden 4 day(s) ago. The symptoms occur constantly. The patient describes this as moderate in severity and worsening. Current treatment includes acetaminophen. Risk factors do not include smoking. The patient has been exposed to an individual with strep. Patient denies history of seasonal allergies or asthma. Note for Upper respiratory infection : reviewed by [facility] 10-29-2018 Unclassified (2 sources) [ADDITIONAL REASON] UTI - Symptoms include dysuria and urinary frequency. There is no assiciated pain. Onset was sudden 2 day(s) ago. There is no known event that preceded symptom onset. The symptoms occur frequently. The patient describes this as mild and worsening. Associated symptoms include chills, but do not include fever. Note for UTI : patient states his blood sugar readings have been running high He has a long hx of diabetes and is non compliant w [facility] 10-29-2018 Unclassified (4 sources) Cold Symptoms - Symptoms include nasal congestion, runny nose (was runny yesterday), ear pain (right ear), ear fullness, sore throat (post nasal drainage), dry cough (starting to have chest congestion and tightness. Some shortness of breath.) and general malaise (body aches), but do not include hoarseness, productive cough, wheezing, fever, chills or headache. The onset was sudden 4 day(s) ago. The symptoms occur constantly. The patient describes this as moderate in severity and worsening. Current treatment includes acetaminophen. Risk factors do not include smoking. The patient has been exposed to an individual with an upper respiratory infection (grandchildren). Medical history includes recurrent sinusitis (once a year), but patient denies history of seasonal allergies or asthma. 09-06-2018 Unclassified (4 sources) Abdominal pain - The abdominal pain has been occurring in a persistent pattern for 1 week. The course has been constant. The pain is described as a dull ache. The pain is located in the suprapubic area (left side) and does not radiate. The symptoms have no relieving factors. The symptoms have been associated with fever (possibly, has had cold chills), while the symptoms have not been associated with nausea or vomiting. Note for Abdominal pain : Fasting blood sugar was 333.Been having night sweats. Is having pain with urination and has a burning sensation for a few minutes after urinating. Has urinary frequency. 06-14-2018 Unclassified (4 sources) Chest pain - The onset of the pain has been acute and has been occurring in an increasing pattern for 3 weeks. The pain is described as a moderate burning. The pain is described as being located in the left chest and does not radiate. There are no precipitating factors. The symptoms are aggravated by food (worse after eating). The symptoms have no relieving factors. Note for Chest pain : The pain is very superfical and constant. When he eats it worsens and moves to the right. 03-01-2017 Unclassified (2 sources) DIscuss PSA Level - Pt here today to discuss PSA level that was recently done. Result was 5.2. He has been seeing Dr. Randolph for his BPH and each visit Dr. Randolph recommends having Biopsy done. Pt is not comfortable going this route at this point in time and would like to discuss. His last visit was in December and next appt due at end of March.Is currently on Tamsulosin 0.[address] Randolph wanted him using twice daily but pt only using once. Is up twice a night to urinate. He is trying some supplements- Magnesium 400 mg- 3-4 time a week at bedtime; Prostate Support daily; Chromium daily however has not used this in awhile. He was hoping to use the supplements for awhile and see how does. He is also wondering about getting an MRI done first before getting biopsy. Dr. Randolph feels MRI should be done after biospy depending what biopsy shows. reviewed by [facility] 03-18-2016 Unclassified (2 sources) [ADDITIONAL REASON] Transition into care - The patient is transitioning into care from another physician and a summary of care was reviewed . 03-18-2016 Unclassified (4 sources) Follow up consultation - The patient is here to follow-up after Emergency Room/Urgent Care ([facility] with hand crush injury.) on : (12-14-15). Note for Consultation follow-up : ER report reviewed. 12-16-2015 Unclassified (4 sources) Cold Symptoms - Symptoms include sneezing, nasal congestion, runny nose, purulent discharge, ear fullness, scratchy throat, productive cough (expectorating clear to whitish phlegm.), chills, general malaise, headache and facial pain (and teeth hurt.), but do not include fever. The onset was gradual 2 week(s) ago. The patient describes this as moderate in severity and worsening (Had thought he as getting better but this past week symptoms worsening again.). Current treatment includes non-prescription cold medication (Delsym and Coricidin.), acetaminophen and NSAIDs. Risk factors do not include smoking. The patient has been exposed to an individual with similar symptoms (). Note for Upper respiratory infection : reviewed by [facility] 06-23-2015 Unclassified (4 sources) [ADDITIONAL REASON] Requesting PSA - Pt states that is up a lot at night urinating and problems starting stream. HX of Porstate CA in family and pt thought he should get his checked. 06-23-2015 Unclassified (4 sources) Headache - Note for Headache : Was seen 01-29-15 with diagnosis of sinusitis and given Bactrim DS and Zyrtec. No improvement. Continues with daily headache on right side. he is also c/o neck pain and finds some positions of head worsen sx.States that about 10 years ago it was thought he had brain tumor and was being evaluated for surgery but on follow up scans his lesions had disappearred. 02-04-2015 Unclassified (4 sources) Headache - The onset of the headache has been acute and has been occurring in a persistent pattern for 3 days. The course has been constant. The headache is characterized as moderate. The headache is experienced any time of the day (no diurnal variation). The headache is described as being located in the frontal area and the right side. Note for Headache : Complains of neck pain for three weeks. 01-30-2015 Unclassified (4 sources) Cold Symptoms - Symptoms include sneezing, nasal congestion (sinus drainage), ear fullness, sore throat, scratchy throat, productive cough, chills and general malaise, but do not include ear pain, hoarseness or fever. The onset was sudden 3 day(s) ago. The symptoms occur constantly. The patient describes this as moderate in severity and worsening. Current treatment includes non-prescription cold medication and cough suppressants. 10-02-2014 Unclassified (4 sources) Cold Symptoms - Symptoms include nasal congestion (sinus drainage), ear pain (right side), sore throat, scratchy throat, dry cough, general malaise and headache, but do not include fever. The onset was sudden 4 day(s) ago. The symptoms occur constantly. The patient describes this as moderate in severity and worsening. Current treatment includes acetaminophen. The patient has been exposed to an individual with strep. Note for Upper respiratory infection : reviewed by [facility] 02-19-2014 Unclassified (4 sources) Cough - The cough has been occurring in a persistent pattern for 4 days. The course has been decreasing. The cough is characterized as productive of white sputum. The amount of sputum is scanty. The cough occurs mainly at night. There is no chest pain or dyspnea. 01-05-2013 Unclassified (4 sources) Chest pain - The onset of the pain has been acute and has been occurring in an increasing pattern for 1 year. The pain is described as a moderate tightness. The pain is described as being located in the substernal area and radiates to the left shoulder and right shoulder. There are no precipitating factors. The symptoms have been associated with nausea and syncope. Note for Chest pain : Last episode happened yesterday morning at 2am which was the worse discomfort. still feels shaky . felt very nauseated and dizzy, got very sweaty. Took an ASA, BP was normal, sugar was 258.aboiut 15 years ago he had a cardiac work up. It was all normal. 12-18-2012 Unclassified (4 sources) Cold Symptoms - Symptoms include nasal congestion, runny nose, purulent discharge, sore throat, dry cough, productive cough, fever (low grade), chills, general malaise and headache, but do not include sneezing, ear pain, ear fullness or wheezing. The onset was gradual 9 day(s) ago. The symptoms occur constantly. The patient describes this as moderate in severity and worsening (thought he was improving several days ago, but then worsened again). The patient is not currently being treated for this problem. Risk factors do not include smoking. The patient has been exposed to an individual with an upper respiratory infection. Medical History dose not include seasonal allergies, recurrent sinusitis, asthma or recurrent ear infections. 07-19-2011 Unclassified (4 sources) er fu - Pt rolled mower [address] in ER were normal. main c/o is pain left shoulder . can not abduct left arm. 04-07-2010 Unclassified (3 sources) Cold Symptoms - Symptoms include nasal congestion, sore throat, dry cough, chills (last night) and general malaise. The onset was 4 day(s) ago. The symptoms occur constantly. The patient describes this as mild and worsening. Current treatment includes non-prescription cold medication. Note for Upper respiratory infection : reviewed by [facility] 07-20-2023 Unclassified (2 sources) UTI - Symptoms include dysuria and urinary frequency. There is no assiciated pain. Onset was sudden 2 day(s) ago. There is no known event that preceded symptom onset. The symptoms occur frequently. The patient describes this as mild and worsening. Associated symptoms include chills, but do not include fever. Note for UTI : patient states his blood sugar readings have been running high He has a long hx of diabetes and is non compliant w [facility] 10-29-2018 Unclassified (2 sources) [ADDITIONAL REASON] Cold Symptoms - Symptoms include nasal congestion, runny nose, ear pain (left side), sore throat, productive cough, chills, general malaise, headache and facial pain. The onset was sudden 4 day(s) ago. The symptoms occur constantly. The patient describes this as moderate in severity and worsening. Current treatment includes acetaminophen. Risk factors do not include smoking. The patient has been exposed to an individual with strep. Patient denies history of seasonal allergies or asthma. Note for Upper respiratory infection : reviewed by [facility] 10-29-2018 Unclassified (2 sources) Transition into care - The patient is transitioning into care from another physician and a summary of care was reviewed . 03-18-2016 Unclassified (2 sources) [ADDITIONAL REASON] DIscuss PSA Level - Pt here today to discuss PSA level that was recently done. Result was 5.2. He has been seeing Dr. Randolph for his BPH and each visit Dr. Randolph recommends having Biopsy done. Pt is not comfortable going this route at this point in time and would like to discuss. His last visit was in December and next appt due at end of March.Is currently on Tamsulosin 0.[address] Randolph wanted him using twice daily but pt only using once. Is up twice a night to urinate. He is trying some supplements- Magnesium 400 mg- 3-4 time a week at bedtime; Prostate Support daily; Chromium daily however has not used this in awhile. He was hoping to use the supplements for awhile and see how does. He is also wondering about getting an MRI done first before getting biopsy. Dr. Randolph feels MRI should be done after biospy depending what biopsy shows. reviewed by [facility] 03-18-2016 Results Test Name Value Interpretation Reference Range Facil ity Vital Signs Date Time Vital Sign Value Performing Clinician Faci lity 07-20-2023 08:40-0500 Body temperature 97.1 [degF] Rafael Doe MD Work Phone: [facility] 07-20-2023 08:40-0500 Body weight 103.87 kg Rafael Doe MD Work Phone: [facility]; [facility] 07-20-2023 08:40-0500 Heart rate 81 /min Rafael Doe MD Work Phone: [facility]; [facility] Encounters Encounter Date Encounter Type Care Provider Facility Start: 07-20-2023 End: 07-20-2023 Office outpatient visit 15 minutes Rafael Doe MD Work Phone: [facility] Start: 05-09-2023 End: 05-09-2023 Office outpatient visit 15 minutes Rafael Doe MD Work Phone: [facility] Start: 01-30-2023 End: 01-30-2023 Orders Rafael Doe MD Work Phone: [facility] Start: 01-24-2023 End: 01-24-2023 Patient encounter procedure Rafael Doe MD Work Phone: [facility] Start: 01-24-2023 End: 01-24-2023 Periodic preventive med est patient 65yrs& older Rafael Doe MD Work Phone: [facility] Start: 01-09-2023 End: 01-09-2023 Orders Rafael Doe MD Work Phone: [facility] Start: 09-20-2022 End: 09-20-2022 Office outpatient visit 15 minutes Rafael Doe MD Work Phone: [facility] Start: 09-08-2022 End: 09-08-2022 Medication Rafael Doe MD Work Phone: [facility] Start: 09-05-2022 End: 09-05-2022 Office outpatient visit 15 minutes Rafael Doe MD Work Phone: [facility] Start: 04-11-2022 End: 04-11-2022 Orders Rafael Doe MD Work Phone: [facility] Start: 04-08-2022 End: 04-08-2022 Historical Summary Rafael Doe MD Work Phone: [facility] Start: 01-06-2022 End: 01-06-2022 Patient encounter procedure Rafael Doe MD Work Phone: [facility] Start: 01-06-2022 End: 01-06-2022 Periodic preventive med est patient 65yrs& older Rafael Doe MD Work Phone: [facility] Start: 12-02-2021 End: 12-02-2021 Office outpatient visit 15 minutes Rafael Doe MD Work Phone: [facility] Start: 09-07-2021 End: 09-07-2021 Office outpatient visit 25 minutes Rafael Doe MD Work Phone: [facility] Start: 01-21-2021 End: 01-21-2021 Historical Summary Rafael Doe MD Work Phone: [facility] Start: 01-21-2021 End: 01-21-2021 Office outpatient visit 25 minutes Rafael Doe MD Work Phone: [facility] Start: 09-21-2020 End: 09-21-2020 Orders Rafael Doe MD Work Phone: [facility] Start: 09-14-2020 End: 09-14-2020 Patient encounter procedure PRAVIN Serena [facility] Start: 09-07-2020 End: 09-07-2020 Orders Rafael Doe MD Work Phone: [facility] Start: 09-05-2020 End: 09-05-2020 Medication Rafael Doe MD Work Phone: [facility] Start: 09-02-2020 End: 09-03-2020 Medication Rafael Doe MD Work Phone: [facility] Start: 08-31-2020 End: 08-31-2020 Office outpatient visit 15 minutes Rafael Doe MD Work Phone: [facility] Start: 08-20-2020 End: 08-20-2020 Patient encounter procedure PRAVIN Enriquez [facility] Start: 08-03-2020 End: 08-03-2020 Office outpatient visit 15 minutes Rafael Doe MD Work Phone: [facility] Start: 03-04-2020 End: 03-04-2020 Medication Rafael Doe MD Work Phone: [facility] Start: 01-24-2020 End: 01-24-2020 Medication Rafael Doe MD Work Phone: [facility] Start: 11-22-2019 End: 11-22-2019 Orders Rafael Doe MD Work Phone: [facility] Start: 11-11-2019 End: 11-11-2019 Medication Rafael Doe MD Work Phone: [facility] Start: 11-01-2019 End: 11-01-2019 Office outpatient new 60 minutes Rafael Doe MD Work Phone: [facility] Start: 10-31-2019 End: 11-01-2019 Orders Rafael Doe MD Work Phone: [facility] Start: 08-25-2019 End: 08-25-2019 Medication Rafael Doe MD Work Phone: [facility] Start: 08-22-2019 End: 08-22-2019 Historical Summary Rafael Doe MD Work Phone: [facility] Start: 08-20-2019 End: 08-20-2019 Office outpatient visit 15 minutes Rafael Doe MD Work Phone: [facility] Start: 06-28-2019 End: 06-28-2019 Medication Rafael Doe MD Work Phone: [facility] Start: 05-31-2019 End: 05-31-2019 Office outpatient visit 15 minutes Rafael Doe MD Work Phone: [facility] Start: 03-12-2019 End: 03-12-2019 Office outpatient visit 15 minutes Rafael Doe MD Work Phone: [employer] Start: 10-29-2018 End: 10-29-2018 Office outpatient visit 15 minutes Rafael Doe MD Work Phone: [employer] Start: 09-06-2018 End: 09-06-2018 Office outpatient visit 15 minutes Rafael Doe MD Work Phone: [employer]. Start: 09-05-2018 End: 09-05-2018 [facility] Contact Call Rafael Doe MD Work Phone: [employer]. Start: 06-14-2018 End: 06-14-2018 Office outpatient visit 25 minutes Rafael Doe MD Work Phone: [employer]. Start: 10-27-2017 End: 10-27-2017 Historical Summary Rafael Doe MD Work Phone: [employer] Start: 09-29-2017 End: 09-29-2017 Office outpatient visit 25 minutes Rafael Doe MD Work Phone: [employer] Start: 09-29-2017 End: 09-29-2017 Orders Rafael Doe MD Work Phone: [employer] Start: 09-26-2017 End: 09-26-2017 [facility] [employer] Contact Call Rafael Doe MD Work Phone: [employer]. Start: 08-31-2017 End: 08-31-2017 Historical Summary Rafael Doe MD Work Phone: [employer] Start: 07-27-2017 End: 07-27-2017 [facility] [employer] Contact Call Rafael Doe MD Work Phone: [employer]. Start: 03-01-2017 End: 03-01-2017 Office outpatient visit 15 minutes Rafael Doe MD Work Phone: [employer]. Start: 09-30-2016 End: 09-30-2016 Orders Rafael Doe MD Work Phone: [employer] Start: 06-29-2016 End: 06-29-2016 Orders Rafael Doe MD Work Phone: [employer]. Start: 05-30-2016 End: 05-30-2016 Historical Summary Rafael Doe MD Work Phone: [employer]. Start: 03-18-2016 End: 03-18-2016 Office outpatient visit 15 minutes Rafael Doe MD Work Phone: [employer] Start: 03-14-2016 End: 03-14-2016 Orders Rafael Doe MD Work Phone: [employer]. Start: 02-17-2016 End: 02-17-2016 Historical Summary Rafael Doe MD Work Phone: [employer]. Start: 01-07-2016 End: 01-08-2016 Orders Rafael Doe MD Work Phone: [employer] Start: 12-16-2015 End: 12-16-2015 Office outpatient visit 15 minutes Rafael Doe MD Work Phone: [employer]. Start: 11-03-2015 End: 11-03-2015 Office outpatient visit 25 minutes Rafael Doe MD Work Phone: [employer]. Start: 08-17-2015 End: 08-17-2015 Medication Rafael Doe MD Work Phone: [employer]. Start: 07-01-2015 End: 07-01-2015 Office outpatient visit 25 minutes Rafael Doe MD Work Phone: [employer]. Start: 06-23-2015 End: 06-23-2015 Office outpatient visit 15 minutes Rafael Doe MD Work Phone: [employer]. Start: 02-06-2015 End: 02-06-2015 Orders Rafael Doe MD Work Phone: [employer]. Start: 02-04-2015 End: 02-04-2015 Office outpatient visit 15 minutes Rafael Doe MD Work Phone: [employer]. Start: 02-02-2015 End: 02-02-2015 Medication Rafael Doe MD Work Phone: [employer]. Start: 01-29-2015 End: 01-30-2015 Office outpatient visit 15 minutes Rafael Doe MD Work Phone: [employer]. Start: 11-19-2014 End: 11-19-2014 Historical Summary Rafael Doe MD Work Phone: [employer]. Start: 11-19-2014 End: 11-19-2014 Office outpatient visit 15 minutes Rafael Doe MD Work Phone: [employer]. Start: 10-02-2014 End: 10-02-2014 Office outpatient visit 15 minutes Rafael Doe MD Work Phone: [employer]. Start: 07-29-2014 End: 07-29-2014 Medication Rafael Doe MD Work Phone: [employer]. Start: 07-29-2014 End: 07-29-2014 Medication Rafael Doe MD Work Phone: [employer]. Start: 07-09-2014 End: 07-09-2014 Office outpatient visit 25 minutes Rafael Doe MD Work Phone: [employer]. Start: 07-01-2014 End: 07-01-2014 Orders Rafael Doe MD Work Phone: [employer]. Start: 05-23-2014 End: 05-23-2014 Orders Rafael Doe MD Work Phone: [employer]. Start: 02-20-2014 End: 02-20-2014 Medication Rafael Doe MD Work Phone: [employer]. Start: 02-19-2014 End: 02-19-2014 Office outpatient visit 10 minutes Rafael Doe MD Work Phone: [employer]. Start: 12-06-2013 End: 12-06-2013 Orders Rafael Doe MD Work Phone: [employer]. Start: 12-06-2013 End: 12-06-2013 Medication Rafael Doe MD Work Phone: [employer]. Start: 09-06-2013 End: 09-06-2013 Medication Rafael Doe MD Work Phone: [employer]. Start: 07-02-2013 End: 07-02-2013 Medication Rafael Doe MD Work Phone: [employer]. Start: 06-28-2013 End: 06-28-2013 Orders Rafael Doe MD Work Phone: [employer]. Start: 06-28-2013 End: 06-28-2013 Patient encounter procedure Rafael Doe MD Work Phone: [employer]. Start: 06-25-2013 End: 06-25-2013 Medication Rafael Doe MD Work Phone: [employer]. Start: 02-06-2013 End: 02-06-2013 Orders Rafael Doe MD Work Phone: [employer]. Start: 01-05-2013 End: 01-05-2013 Patient encounter procedure Rafael Doe MD Work Phone: [employer]. Start: 12-18-2012 End: 12-18-2012 Patient encounter procedure Rafael Doe MD Work Phone: [employer]. Start: 12-17-2012 End: 12-17-2012 Medication Rafael Doe MD Work Phone: [employer]. Start: 10-02-2012 End: 10-02-2012 Medication Rafael Doe MD Work Phone: [employer]. Start: 09-28-2012 End: 09-28-2012 Patient encounter procedure Rafael Doe MD Work Phone: [employer]. Start: 09-14-2012 End: 09-14-2012 Historical Summary Rafael Doe MD Work Phone: [employer]. Start: 08-21-2012 End: 08-21-2012 Medication Rafael Doe MD Work Phone: [employer]. Start: 05-11-2012 End: 05-11-2012 Patient encounter procedure Rafael Doe MD Work Phone: [employer]. Start: 01-03-2012 End: 01-03-2012 Patient encounter procedure Rafael Doe MD Work Phone: [employer]. Start: 08-31-2011 End: 08-31-2011 Medication Rafael Doe MD Work Phone: [employer]. Start: 08-23-2011 End: 08-23-2011 Medication Rafael Doe MD Work Phone: [employer]. Start: 07-19-2011 End: 07-19-2011 Patient encounter procedure Rafael Doe MD Work Phone: [employer]. Start: 05-18-2011 End: 05-18-2011 Medication Rafael Doe MD Work Phone: [employer]. Start: 03-30-2011 End: 03-30-2011 Patient encounter procedure Rafael Doe MD Work Phone: [employer]. Start: 03-01-2011 End: 03-01-2011 Medication Rafael Doe MD Work Phone: [employer]. Start: 12-02-2010 End: 12-02-2010 Medication Rafael Doe MD Work Phone: [employer]. Start: 11-19-2010 End: 11-19-2010 Medication Rafael Doe MD Work Phone: [employer]. Start: 11-05-2010 End: 11-05-2010 Orders Rafael Doe MD Work Phone: [employer]. Start: 11-05-2010 End: 11-05-2010 Patient encounter procedure Rafael Doe MD Work Phone: [employer]. Start: 07-08-2010 End: 07-08-2010 Medication Rafael Doe MD Work Phone: [employer]. Start: 07-02-2010 End: 07-02-2010 Medication Rafael Doe MD Work Phone: [employer]. Start: 05-13-2010 End: 05-13-2010 Medication Rafael Doe MD Work Phone: [employer]. Start: 05-13-2010 End: 05-13-2010 Medication Rafael Doe MD Work Phone: [employer]. Start: 05-13-2010 End: 05-13-2010 Historical Summary Rafael Doe MD Work Phone: [employer]. Start: 04-26-2010 End: 04-26-2010 Medication [facility] Start: 04-26-2010 End: 04-26-2010 Historical Summary [facility] Start: 04-07-2010 End: 04-07-2010 Patient encounter procedure [facility] Doe MD Work Phone[facility] Start: 03-29-2010 End: 03-29-2010 Orders Rafael Doe MD Work Phone: [facility] Patient encounter procedure Debby Wilkinson [employer] [facility] [employer] Patient encounter procedure [facility] Procedures Date Procedure Procedure Detail Performing Clinician Start: 05-09-2023 End: 06-14-2023 Radex hips bilateral with pelvis 2 views Rafael Doe MD Work Phone: Start: 01-24-2023 End: 01-24-2023 Adv care pln/ no alt dcsn mkr docd or refusal Rafael Doe MD Work Phone: Start: 01-24-2023 End: 01-24-2023 Depression screening Rafael Doe MD Work Phone: Start: 01-24-2023 End: 01-24-2023 Falls risk assessment documented Rafael Doe MD Work Phone: Start: 01-24-2023 End: 01-24-2023 PPPS, subseq visit Rafael Doe MD Work Phone: Start: 01-24-2023 End: 01-24-2023 Pt falls assess docd w/o fall/injury past year Rafael Doe MD Work Phone: Start: 01-24-2023 End: 01-24-2023 Scr dep neg, no plan reqd Rafael Doe MD Work Phone: Start: 01-16-2023 End: 01-16-2023 Lipid panel Debby Wilkinson LP N Plan of Treatment Date Care Activity Detail Author Start: 07-19-2023 Assay of prostate specific antigen total PSA TOTAL (PROSTATE SPECIFIC ANTIGEN) ([id number]) Start: 19-Jul-2023 Request [employer] [employer] Start: 01-09-2023 Assay of prostate specific antigen total PSA TOTAL (PROSTATE SPECIFIC ANTIGEN) ([id number]) Start: 09-Jan-2023 12:40 Request [employer] [employer] Start: 04-11-2022 Lipid panel LIPID PANEL (8 [id number]) Start: 11-Apr-2022 8:44 Request [employer] [employer] Start: 04-08-2022 Lipid panel LIPID PANEL ([id number]) Start: 08-Apr-2022 9:08 Request [employer] [employer] Start: 01-29-2015 Patient Education Sinusitis *: sinus infection Indication: SINUSITIS, ACUTE NEC Start: 29-Jan-2015 Instruction Type: Patient Education [employer] Start: 10-02-2014 Patient Education Acute Bronch itis: Brief Version *: acute bronchitis Indication: Acute bronchitis Start: 02-Oct-2014 Instruction Type: Patient Education [employer] Start: 12-21-2012 End: 12-26-2012 Ecg routine ecg w/least 12 lds w/i&r EKG (In office) [facility] Work Phone: Start: 12-21-2012 End: 12-26-2012 Follow Up Appt 3 months Follow Up Appt 3 months [facility] Work Phone: Start: 12-21-2012 End: 12-26-2012 Follow Up Appt 6 weeks Follow Up Appt 6 weeks [facility] Work Phone: Start: 12-21-2012 End: 12-26-2012 MMM MMM [facility] Work Phone: Start: 12-21-2012 End: 12-26-2012 PFM PFM [facility] Work Phone: Immunizations Immunization Date Immunization Notes Care Provider Mare mcdowell 09-14-2020 COVID-Pfizer (30 MCG /0.3 ML) Rafael [facility] [employer] 08-20-2020 COVID-Pfizer (30 MCG /0.3 ML) Rafael Doe MD [facility] [employer] 11-19-2014 pneumococcal polysaccharide vaccine, 23 valent Rafael Doe MD Work [facility]: [facility] [employer] pneumococcal Conjuga te, unspecified formulation Rafael Doe MD Work Phone: [facility] [employer] [facility] [employer] Payers Date Payer Category Payer Unknown [id number] 1950 Unknown [id number] Medicare [id number] Unknown Social History Date Type Detail Facility Caffeine Use Caffeine Use [facility] [employer] Tobacco Use: Tobacco Use: ; Former smoker . [employer]. Male [facility] [employer] Work Phone: Ex-smoker [facility] [employer] Work Phone: Medical Equipment Procedure Code Equipment Code Equipment Origin al Text Equipment Identifier Dates True Metrix Bloo d Glucose Test In Vitro Strip ; 1 (one) Each four times daily, as needed for 0 days Quantity: 3 {Each} Refills: 11 Ordered: 14-Dec-2022 MD Gonsalo Verde Start: 14-Dec-2022 Comments: Medication taken as needed. 4x a day [id number] Start: 12-14-2022 Goals Date Patient Goal Desired Activity /State 08-30-2017 Summary Purpose Family History No Family History Records FoundNo Family History Records FoundNo Family History Records FoundNo Family History Records FoundNo Family History Records Found Advance Directives No Advanced Directives Records FoundNo Advanced Directives Records FoundNo Advanced Directives Records FoundNo Advanced Directives Records FoundNo Advanced Directives Records Found Additional Source Comments (unrecognized sect ion and content) No Status Records FoundNo Status Records FoundNo Status Records FoundNo Status Records FoundNo Status Records Found INFORMATION SOURCE (unrecogn ized section and content) DATE CREATED AUTHOR AUTHOR'S ORGANIZ ATION 09/20/2020 [facility] DATE CREATED AUTHOR AUTHOR'S ORGANIZ ATION 09/20/2020 [facility] DATE CREATED AUTHOR AUTHOR'S ORGANIZ ATION 10/09/2020 [facility] DATE CREATED AUTHOR AUTHOR'S ORGANIZ ATION 01/25/2023 [facility] FOR RECORDS PERTAINING TO PATIENTS WHO ARE OR HAVE BEEN ENROLLED IN A CHEMICAL DEPENDENCY/SUBSTANCEABUSE PROGRAM, SOME INFORMATION MAY BE OMITTED. This clinical summary was aggregated from multiple sources. Caution should be exercised in using it in the provision of clinical care. This summary normalizes information from multiple sources, and as a consequence, information in this document may materially change the coding, format and clinical context of patient data. In addition, data may be omitted in some cases. CLINICAL DECISIONS SHOULD BE BASED ON THE PRIMARY CLINICAL RECORDS. [facility]. provides no warranty or guarantee of the accuracy or completeness of information in this document.
[2023-08-21 08:01] LABS: AST(SGOT) 19 U/L (15-37); Alanine Aminotransfer ALT/SGPT 27 U/L (16-61); Albumin, Serum 3.6 g/dL (3.2-5.0); Alkaline Phosphatase 79 U/L (45-117); Anion Gap 6 (5-15); BUN 25 mg/dL (7-18); BUN/Creat Ratio 22.1 RATIO (10-20); Bilirubin, Direct 0.08 mg/dL (0.00-0.30); Calcium,Total 9.1 mg/dL (8.5-10.1); Chloride 107 mmol/L (98-107); Cholesterol 206 mg/dL (200); Creatinine, Serum 1.13 mg/dL (0.70-1.30); EST Glomerular Filtration Rate 67 mL/min (>60); Est Glom Filt Rate - Afr Amer 81 mL/min (>60); Globulin 3.5 g/dL (2.2-4.2); Glucose 227 mg/dL (74-106); High Density Lipoprotein 33 mg/dL; Potassium 4.2 mmol/L (3.5-5.1); Protein, Total 7.1 g/dL (6.4-8.2); Sodium Level 138 mmol/L (136-145); Triglycerides 516 mg/dL
== END | disposition home or self-care (01) ==
LOC: LAB 05:58
PROVIDERS: PCP Family Medicine; Referring Provider Nurse Practitioner Gerontology; Visit Provider Nurse Practitioner Gerontology
DX: E78.5 Hyperlipidemia, unspecified (principal); I10 Essential (primary) hypertension
CPT/HCPCS: 36415; 80048; 80061; 80076

== ENCOUNTER → 2023-12-29 | Outpatient (CLI) | payer MEDICARE, OTHER, SELFPAY | END | disposition home or self-care (01) | LOC: CT 14:44 | PROVIDERS: PCP Family Medicine; Referring Provider Internal Medicine Cardiovascular Disease; Visit Provider Internal Medicine Cardiovascular Disease | DX: R07.9 Chest pain, unspecified (principal) ==

== ENCOUNTER → 2024-02-20 | Outpatient (CLI) | payer MEDICARE, OTHER, SELFPAY ==
--- NOTE | 2024-02-20 07:39 | CT_ITS ---
STUDY: CT CHEST WITHOUT CONTRAST REASON FOR EXAM: Male, 73 years old. CHEST PAIN RADIATION DOSAGE (If Supplied By Facility): CTDIvol = ( 12.19 ) mGy, DLP = ( 243.79 ) mGycm TECHNIQUE: Transaxial imaging was performed without the administration of intravenous contrast material. Cardiac over read examination. Individualized dose optimization techniques were used for this CT. COMPARISON: No relevant priors. FINDINGS: CHEST Small bilateral benign-appearing axillary lymph nodes. The lungs are normal. There is no demonstrated pleural abnormality. There are calcifications of the coronary arteries. There are small lymph nodes within the mediastinum, which are normal in size and morphology most compatible with reactive lymph hyperplasia. Normal hilar regions. Normal unenhanced pulmonary arteries. There is atherosclerotic calcification of the aortic arch. Normal osseous structures. There is no demonstrated abnormality of the visualized upper abdomen. CT/Limited Chest CT Cardiac Only IMPRESSION: Coronary artery calcification. Electronically Signed: Tommy Mendiola MD at 9:48 EDT ,
--- NOTE | 2024-02-27 06:31 | CA.SCORE ---
Calcium Scoring Date of Study:: 02/20/24 Indications Indications: Chest pain Coronary Calcium Scoring: High-resolution Computed Tomographic imaging of the chest was performed on [02/20/2024], with particular attention paid to the coronary arteries. Images from the examination were analyzed for the presence and extent of coronary artery calcification , using coronary calcium quantification software. The patient tolerated the procedure well and there were no complications. The results of the coronary calcification analysis are provided below. Findings Coronary Artery Left Main (LM): 0 Left Anterior Descending (LAD): 251 Left Circumflex (LCX): 0 Right Coronary Artery (RCA): 1,355 Total Agatston Score: 1,606 Percentile Rankinth to 90th percentile Calcium Scoring Interpretation: Different methods to categorize the overall amount of coronary plaque. Overall amount CAC SIS Visual of coronary plaque P1 Mild -100 <2 1-2 vessels with mild amount of plaque P2 Moderate 101-300 3-4 1-2 vessels with moderate amount, 3 vessels with mild amount of plaque P3 Severe 301-999 5-7 3 vessels with moderate amount, 1 vessel with severe amount of plaque P4 Extensive >1000 >8 2-3 vessels with severe amount of plaque Calcium Score: Extensive: 2-3 vessels w/severe amount of plaque Conclusion: Extensive amount of plaquing noted in the right coronary artery with calcification and mild plaquing noted in the left anterior descending artery.
== END | disposition home or self-care (01) ==
LOC: CT 07:37
PROVIDERS: PCP Family Medicine; Referring Provider Internal Medicine Cardiovascular Disease; Visit Provider Internal Medicine Cardiovascular Disease
DX: R07.9 Chest pain, unspecified (principal)
CPT/HCPCS: 75571; 76380

== ENCOUNTER 2024-03-18 07:00 | Day surgery (SDC) | payer MEDICARE, OTHER, SELFPAY ==
[2024-03-04 10:27] LABS: Absolute Lymphocyte Count 2.51 X10^3/uL (0.83-4.51); Absolute Neutrophil Count 4.5 X10^3/uL (2.0-7.7); Basophil# 0.07 X10^3/uL; Basophil% 0.9 % (0-1); Eosinophil# 0.25 X10^3/uL; Eosinophils% 3.2 % (0-5); Hematocrit 40.4 % (40-54); Hemoglobin 13.1 g/dL (13.0-16.5); Lymphocyte # 2.51 X10^3/ul (0.83-4.51); Lymphocyte % 31.8 % (19-41); Mean Corp Hgb Conc 32.4 g/dL (32-36); Mean Corpuscular Hgb 28.9 pg (27.0-32.0); Mean Corpuscular Volume 89.2 fL (80-94); Mean Platelet Vol. 9.8 fl (6.2-12.0); Monocyte# 0.59 X10^3/uL; Monocyte% 7.5 % (0-10); NRBC Flagged by Analyzer 0 % (0-5); Neutrophil # 4.46 X10^3/uL (2.7-7.7); Neutrophil % 56.3 % (47-70); Platelet Count 249 K/mm3 (150-450); RBC Distribution Width CV 14.3 % (11.6-14.6); RBC Distribution Width SD 45.9 fl (35.1-43.9); Red Blood Count 4.53 M/mm3 (4.6-6.2); White Blood Count 7.9 K/mm3 (4.4-11.0)
[2024-03-04 10:50] LABS: Anion Gap 10 (5-15); BUN 19 mg/dL (7-18); BUN/Creat Ratio 15.2 RATIO (10-20); Calcium,Total 9.3 mg/dL (8.5-10.1); Chloride 101 mmol/L (98-107); Creatinine, Serum 1.25 mg/dL (0.70-1.30); EST Glomerular Filtration Rate 60 mL/min (>60); Est Glom Filt Rate - Afr Amer 72 mL/min (>60); Glucose 221 mg/dL (74-106); Potassium 4.6 mmol/L (3.5-5.1); Sodium Level 135 mmol/L (136-145)
--- NOTE | 2024-03-04 13:17 | HP.PCM_ITS ---
History and Physical Date of Admission: 03/18/24 This is a 73-year-old man who presents to the [facility] [employer] [facility] today for a left heart catheterization. He has a history of hypertension, diabetes mellitus, and hyperlipidemia. From a cardiac standpoint, the patient is doing well. He denies any palpitations, chest pain, pressure or heaviness. He does have occasional SOB with over exertion. He is attributing this to increased weight gain, and age. This is nothing new or worsening. He denies Orthopnea, and PND. He does not have bleeding issues; no blood in urine, stool or nosebleeds. He denies any decrease in energy level, myalgias, or claudication. He does not have edema, or sudden weight gain. He denies dizziness, lightheadedness, syncopal or near syncopal episodes, and headaches. Patient underwent a coronary calcium scoring test on 02/27/2024. His total score was noted be 1606 with extensive plaquing noted in the RCA and mild plaquing noted in the LAD. On account of such results, he will proceed with heart catheterization. Intake Vital Signs: See EMR Intake Visit Reasons: [facility] Allergies ezetimibe (From Zetia) Allergy (Mild, Verified 12/12/23 13:00) Abd cramps/diarrhea Vmasjjg-TOP-FuE Reductase Inhibitor Allergy (Mild, Verified 12/12/23 13:00) Abd cramps/diarrhea prednisone Allergy (Verified 12/12/23 13:00) Other sertraline (From Zoloft) Allergy (Verified 12/12/23 13:00) Swelling lisinopril Adverse Reaction (Intermediate, Verified 12/12/23 13:00) cough icosapent ethyl (From Vascepa) Adverse Reaction (Mild, Verified 12/12/23 13:00) Abd cramps/diarrhea Medications: See EMR COUNT INCLUDES THE [facility] Medical History COVID-19 Obesity Hyperlipidemia BPH (benign prostatic hyperplasia) ADD (attention deficit disorder) Depression GERD (gastroesophageal reflux disease) Elevated PSA Essential hypertension Diabetes type 2, controlled Anxiety DM2 (diabetes mellitus, type 2) Surgical History History of bilateral cataract extraction H/O colonoscopy H/O prostate biopsy H/O vasectomy r leg muscle repair Family History Mother CAD (coronary artery disease) CABG, stentsFather Myocardial infarction Parkinsons diseaseBrother CVA (cerebral vascular accident)Brother CAD (coronary artery disease) stents Myocardial infarction Social History Smoking Status: Former smoker second hand exposure: No alcohol intake: never substance use type: does not use ROS Const Const: Negative for fatigue, weakness, headache(s), daytime sleepiness or di fficulty sleeping ENT ENT: Negative for headache(s), dizziness or Nosebleed/epistaxis Cardio Chest Pain: No Palpitations: No Edema: None Resp Respiratory: Negative for SOB with activity, SOB at rest, SOB orthopnea\SOB lying down or Cough GI GI: Negative nausea, vomiting or heartburn Neuro Neuro: Negative for dizziness, lightheadedness, near syncope, headache(s) or weakness Endo Endo: Negative for fatigue Cardiology Exam Const Appearance: cooperative and no acute distress Nutritional Appearance: obese Orientation: alert and oriented x3 Head Head: normal to inspection Ears: hearing grossly impaired Nose: external nose normal Face and Sinus: face symmetric Eyes General: appearance normal, both eyes and all related structures Eyelids: eyelids normal Conjunctivae: conjunctivae normal Pupils: PERRL and pupil size EOM: EOM intact bilaterally Neck Neck: normal visual inspection Carotids: Negative bruit Chest Chest inspection: normal inspection of the chest and normal respiratory effort Auscultation: Bilateral: Clear to Auscultation Cardio Palpation: normal PMI Rate: regular rate Rhythm: regular rhythm Heart sounds: S1 normal and S2 normal; Negative rub, gallop or murmur GI GI: normal to inspection, soft and obese Neuro General: patient alert, patient oriented x3 and CN's II-XI intact bilaterally Skin Skin: no rashes or lesions noted Extremities Pulses: Normal: Right Posterior Tibial Pulse, Left Posterior Tibial Pulse, Right Radial Pulse and Left Radial Pulse Lower Extremity Edema: None: Bilateral Psych Psychological: normal affect Supplemental Info Supplemental Information Echocardiogram 02/24/2020: Normal LV size. Left ventricular systolic function is normal. The estimated ejection fraction is 60 %. Stage 1 diastolic dysfunction. Pulmonary artery systolic pressure is 28 mmHg. Stress Test 07/27/2021: Conclusion: Normal pharmacologic myocardial perfusion stress test. Preserved ejection fraction. Coronary angiography CT calcium score from 02/27/2024: Findings Coronary Artery Left Main (LM): 0 Left Anterior Descending (LAD): 251 Left Circumflex (LCX): 0 Right Coronary Artery (RCA): 1,355 Total Agatston Score: 1,606 Percentile Rankinth to 90th percentile Conclusion: Extensive amount of plaquing noted in the right coronary artery with calcification and mild plaquing noted in the left anterior descending artery. Assessment and Plan Assessment and Plan (1) Hyperlipidemia: Status: Chronic Qualifiers: Hyperlipidemia type: unspecified Qualified Code(s): E78.5 - Hyperlipidemia, unspecified Plan: Patient has a history of hyperlipidemia. His most recent lipid panel from July demonstrated total cholesterol 206 HDL of 33. Triglycerides were 516.. This is not ideal, and was reviewed with patient. He states he was unable to tolerate statins, Zetia, and Vascepa due to myalgias, and stomach cramps. We will obtain a fasting lipid and liver profile to reassess. At this time, he will continue with diet and lifestyle modifications. Weight loss was strongly encouraged. (2) Essential hypertension: Status: Chronic Plan: Patient has a history of hypertension. His blood pressure is elevated in the office today. He will be asked to start spironolactone 25mg daily. He will obtain a BMP in 1 week. He will continue amlodipine 10 mg daily, and losartan 100 mg daily, along with monitoring his blood pressures at home. He will notify our office of readings in 2 weeks. Weight loss was strongly encouraged, as well as monitoring his sodium intake. (3) Abnormal Calcium Score: Status: Acute Plan: He will proceed with heart catheterization. Depending on results, further recommendation will be made.
[2024-03-15 14:58] VITALS: BMI 35.8
--- NOTE | 2024-03-18 05:31 | EKG12_ITS ---
Test Reason : [facility] Blood Pressure : / mmHG Vent. Rate : 079 BPM Atrial Rate : 079 BPM P-R Int : 244 ms QRS Dur : 092 ms QT Int : 374 ms P-R-T Axes : 058 041 024 degrees QTc Int : 428 ms Sinus rhythm with 1st degree A-V block Otherwise normal ECG When compared with ECG of 18-APR-2017 09:32, No significant change was found Baseline artifact Confirmed by Chase Mattson ([id number]), associate editor NENO WHITE ([id number]) on 03/18/2024 1:23:19 PM Referred By: Bo Tierney Confirmed By:Chase Mattson
--- NOTE | 2024-03-18 10:04 | CL.D_ITS ---
Patient Name: TESHA KELLEY Study Date: 03/18/2024 Performing: Bo Tierney MD Ht: 66 inches 167.64 cm : 1950 Wt: 222.01 lbs 100.7 kg Age: 73 Gender: male BSA: 2.09 PROCEDURE(S) PERFORMED DC01-(30436)LHC/COR/LV CLINICAL PROFILE AND INDICATIONS Indications: Suspected CAD Heart Failure: None Stress/Imaging Coronary Calcium Score: Yes Calcium Score: 1600Calcium Score: 1600 CAD Presentations: Other: SOB CONCLUSIONS Diffuse triple-vessel disease but especially involving the left anterior descending artery and the right coronary artery. RECOMMENDATIONS Will recommend coronary bypass surgery. DESCRIPTION OF PROCEDURE The patient arrived to the procedure lab. The risks and benefits of the procedure as well as a full description of our services here and current unavailability of surgical backup were fully explained to the patient and/or their significant other prior to the catheterization. The Timeout was completed, verifying the correct patient and procedure. The patient's procedural site was prepped and draped in the usual fashion. Local anesthetic was given subcutaneously to right radial region with Lidocaine 2%. Using a modified Seldinger technique, arterial access was obtained via the right radial artery, a 6Fr sheath was inserted. Right Coronary Artery selective angiography was then performed in multiple views using a 5 Fr. 4.0 [place] catheter. Left Coronary Artery selective angiography was performed in multiple views using a 5 Fr. 4.0 [place]un[place] catheter.The arterial sheath was pulled and a TR Band was applied for hemostasis. 12cc air CORONARY ANGIOGRAPHY DOMINANCE: Right Dominant LEFT HEART ASSESSMENT Left Ventricular Ejection Fraction: by LV Gram 65 % Normal LV wall motion Normal Left Ventricular systolic function LEFT MAIN: Mild calcification, No significant disease noted LEFT ANTERIOR DESCENDING ARTERY: This is a medium size vessel with the first diagonal branch with mild diffuse disease in the midsegment of the left anterior descending artery with an 80% stenosis followed by another smooth area of 80% stenosis distal mild diffuse disease present. DIAGONAL 1: Proximal - Mild diffuse disease noted CIRCUMFLEX ARTERY: Proximal circumflex artery with minimal disease of first tiny obtuse marginal branch, a second large obtuse marginal branch with a mid to distal 60 to 70% diffusely diseased area RIGHT CORONARY ARTERY: Dominant vessel with proximal smooth 70% stenotic area in the mid to smooth 90% stenosis the vessel then continues and gives of the posterior descending artery and posterolateral vessel with the posterior descending artery having a proximal 70 to 80% stenotic area. COMPLICATIONS No Complications PROCEDURE MEDICATIONS Fentanyl 50 mcg IV Versed 1 mg IV Versed 1 mg IV Oxygen: 2 L/min via nasal cannula Heparin given IA 03/18/2024 08:27:48 Verapamil 2.5mg, Ntg 100mcgs, 3000 units of Heparin given IA 03/18/2024 08:27:48 SUMMARY OF HEMODYNAMIC DATA Time AIR REST ECG 07:22:10 AO 111/45 (73) SA 08:36:46 LV 110/-1, 3 08:43:36 LV 113/-2, 4 08:43:44 LV 112/-1, 5 08:44:19 LVp 112/0, 6 08:44:23 Signed By Bo Tierney MD On 03/18/2024 10:03:30 Bo Tierney MD
== END 2024-03-18 10:45 | disposition home or self-care (01) ==
PROVIDERS: Nurse Practitioner Family; PCP Family Medicine; Referring Provider Internal Medicine Cardiovascular Disease; Visit Provider Internal Medicine Cardiovascular Disease
DX: I25.10 Atherosclerotic heart disease of native coronary artery without angina pectoris (principal); E11.9 Type 2 diabetes mellitus without complications; I10 Essential (primary) hypertension; E78.5 Hyperlipidemia, unspecified; F98.8 Other specified behavioral and emotional disorders with onset usually occurring in childhood and adolescence; F32.A Depression, unspecified; K21.9 Gastro-esophageal reflux disease without esophagitis; F41.9 Anxiety disorder, unspecified; N40.0 Benign prostatic hyperplasia without lower urinary tract symptoms; R06.02 Shortness of breath; E66.9 Obesity, unspecified; Z86.16 Personal history of COVID-19; Z87.891 Personal history of nicotine dependence; Z79.899 Other long term (current) drug therapy
CPT/HCPCS: 36415; 80048; 85025; 93005; 93458; 99152; 99153; J7040; Q9967; C1769; C1894

== ENCOUNTER → 2024-04-09 | Outpatient (CLI) | payer MEDICARE, OTHER, SELFPAY ==
--- NOTE | 2024-04-09 08:59 | VDLE_ITS ---
Reason For Study: Pre-op RIGHT LEFT GSV prox thigh, 0.42 x 0.44 cm. GSV prox thigh, 0.37 x 0.41 cm. GSV mid thigh, 0.32 x 0.31 cm. GSV mid thigh, 0.23 x 0.25 cm. GSV distal thigh, 0.28 x 0.29 cm. Branches noted coming off of GSV mid thigh. GSV knee, 0.29 x 0.30 cm. GSV distal thigh, 0.25 x 0.24 cm. GSV prox calf, 0.24 x 0.25 cm. GSV knee, 0.25 x 0.29 cm. Branches noted coming off of GSV prox calf. GSV prox calf, 0.26 x 0.25 cm. GSV mid calf, 0.21 x 0.26 cm. Branches noted coming off of GSV prox calf. GSV distal calf, 0.28 x 0.31 cm. GSV mid calf, 0.22 x 0.22 cm. ASV mid thigh comes of GSV mid thigh. GSV distal calf, 0.24 x 0.29 cm. ASV mid thigh, 0.35 x 0.42 cm SSV prox, 0.21 x 0.24 cm. ASV distal thigh, 0.31 x 0.32 cm. SSV mid, 0.21 x 0.21 cm. ASV knee, 0.27 x 0.27 cm. SSV distal, 0.27 x 0.31 cm. ASV prox calf, 0.30 x 0.31 cm. SSV prox, 0.33 x 0.34 cm GSV and SSV are compressible. SSV mid, 0.25 x 0.28 cm. SSV distal, 0.28 x 0.35 cm. GSV, ASV and SSV are compressible. Procedure This is a venous duplex using B-mode, color flow and spectral Doppler. Exam performed in department. VL/Saphenous Vein Mapping, Bilat Interpretation Summary Right great saphenous vein patent with measurements above. Multiple accessory a nd calf branches noted. Left great saphenous vein patent with measurements above. Multiple accessory an d calf branches noted. Right small saphenous vein patent with measurements Left small saphenous vein patent with measurements Ordering Physician: Lemuel Cherry Referring Physician: Rafael Doe MD Performed By: Roro Kraus RVT
--- NOTE | 2024-04-09 08:59 | CDU_ITS ---
Reason For Study: Pre-op Rt. Velocities/BP Lt. Velocities/BP Prox CCA 61.7/7.8 cm/sec. Prox CCA 82.5/17.3 cm/sec. Mid CCA 59.8/7.8 cm/sec. Mid CCA 71.1/14.5 cm/sec. Dist CCA 57/8.8 cm/sec. Dist CCA 84.4/17.3 cm/sec. Prox ICA 74/18.2 cm/sec. Prox ICA 79.5/14.6 cm/sec. Mid ICA 71.1/15.4 cm/sec. Mid ICA 79.5/19 cm/sec. Dist ICA 68.3/15.4 cm/sec. Dist ICA 63/16.8 cm/sec. Rt. ICA/CCA = 1.24. Lt. ICA/CCA = 1.12. Prox ECA 132.1/4.2 cm/sec. Prox ECA 105.8/4.7 cm/sec. Rt. Vert. 28.7/5.9 cm/sec. Lt. Vert. 46.5/10.2 cm/sec. Right Extracranial There is homogeneous, smooth atherosclerotic plaque noted in the right common carotid artery. There is heterogeneous, irregular atherosclerotic plaque noted in the right internal carotid artery. There is intimal thickening but no significant atherosclerotic plaque noted in the right external carotid artery. Antegrade flow is noted in the right vertebral artery. Left Extracranial There is homogeneous, smooth atherosclerotic plaque noted in the left common carotid artery. There is heterogeneous, irregular atherosclerotic plaque noted in the left internal carotid artery. There is intimal thickening but no significant atherosclerotic plaque noted in the left external carotid artery. Antegrade flow is noted in the left vertebral artery. Procedure Carotid Duplex 30188. This is a Carotid Duplex examination using B-mode, color flow and specral Doppler. Exam performed in department. VL/Carotid Duplex Ultrasound Interpretation Summary Mild (<50%) stenosis right extracranial internal carotid. Mild (<50%) stenosis left extracranial internal carotid. Patent and antegrade vertebrals bilaterally. Ordering Physician: Lemuel Cherry Referring Physician: Rafael Doe MD Performed By: Roro Krasu RVT
--- NOTE | 2024-04-09 09:01 | ECHOCS_ITS ---
Reason For Study: Preop Procedure This was a 2D Doppler, Color Flow transthoracic echocardiogram. Contrast injection was performed. Exam performed in department. Left Ventricle Normal LV size. Left ventricular systolic function is normal. The left ventricular ejection fraction is 60 %. Stage 1 diastolic dysfunction. No regional wall motion abnormalities noted. Right Ventricle Normal RV size. Normal systolic function. Atria Normal left atrium. Normal right atrium. Mitral Valve Normal mitral valve. Tricuspid Valve Normal tricuspid valve. Mild tricuspid valve insufficiency. Pulmonary artery systolic pressure is 24 mmHg. Aortic Valve Trisinus/trileaflet aortic valve. Pulmonic Valve Normal pulmonic valve. Great Vessels Normal aortic root. The pulmonary artery is normal size. Inferior vena cava collapse with respiration. Pericardium/Pleural No pericardial effusion. Medication Performed a rapid injection of agitated mix of 9 cc saline and 1cc air to assess for atrial septal defect. Diluted definity 1.5ml given slow IV push to enhance endocardial definition. MMode/2D Measurements & Calculations LVIDd: 4.6 cm IVSd: 1.1 cm Ao root diam: 3.4 cm LVIDs: 3.2 cm LVPWd: 1.1 cm RVDd: 3.0 cm FS: 30.5 % LAV(MOD-bp): 37.4 ml LVAd ap4: 29.0 cm2 SV(MOD-sp4): 50.6 ml LAV(MOD-bp) Indexed: 17.6 ml/m2 LVLd ap4: 8.1 cm LAV(MOD-sp2): 37.0 ml EDV(MOD-sp4): 84.3 ml LAV(MOD-sp4): 35.9 ml EDV(sp4-el): 88.3 ml LVAs ap4: 16.1 cm2 LVLs ap4: 6.5 cm ESV(MOD-sp4): 33.7 ml ESV(sp4-el): 33.7 ml EF(MOD-sp4): 60.1 % EF(sp4-el): 61.8 % SV(sp4-el): 54.6 ml LA A4 area: 15.0 cm2 LA dimension(2D): 3.5 cm RA A4 area: 10.1 cm2 TAPSE: 2.3 cm Time Measurements MV dec time: 0.23 sec Doppler Measurements & Calculations MV E max ranjit: 66.9 cm/sec Lat Peak E' Ranjit: 5.4 cm/sec Med Peak E' Ranjit: 3.9 cm/sec MV A max ranjit: 102.5 cm/sec E/E' lat: 12.4 E/E' med: 17.0 MV E/A: 0.65 MV dec slope: 296.4 cm/sec2 Ao V2 max: 114.1 cm/sec LV V1 max: 86.1 cm/sec Ao max P.2 mmHg LV V1 max P.0 mmHg Ao V2 mean: 81.6 cm/sec LV V1 mean P.7 mmHg Ao mean P.9 mmHg LV V1 mean: 63.4 cm/sec Ao V2 VTI: 26.7 cm LV V1 VTI: 19.3 cm AV (velocity ratio): 0.72 PA V2 max: 99.1 cm/sec PI end-d ranjit: 75.6 cm/sec TR max ranjit: 226.4 cm/sec TR max P.5 mmHg ECHO/Echo Complete W/ Contrast Interpretation Summary Normal LV size. Left ventricular systolic function is normal. The left ventricular ejection fraction is 60 %. Stage 1 diastolic dysfunction. Contrast injection was performed. Ordering Physician: Lemuel Cherry Referring Physician: Rafael Doe Performed By: Maeve Moralez RDCS, RVT
== END | disposition home or self-care (01) ==
PROVIDERS: PCP Family Medicine; Referring Provider Thoracic Surgery (Cardiothoracic Vascular Surgery); Visit Provider Thoracic Surgery (Cardiothoracic Vascular Surgery)
DX: Z01.818 Encounter for other preprocedural examination (principal); I25.118 Atherosclerotic heart disease of native coronary artery with other forms of angina pectoris; R09.89 Other specified symptoms and signs involving the circulatory and respiratory systems; R07.9 Chest pain, unspecified
CPT/HCPCS: 93306; 93880; 93970; Q9957; A4216; C8929

== ENCOUNTER → 2024-07-29 | Outpatient (CLI) | payer MEDICARE, OTHER, SELFPAY | END | disposition home or self-care (01) | LOC: LAB 10:38 | PROVIDERS: PCP Family Medicine; Referring Provider Nurse Practitioner; Visit Provider Nurse Practitioner | DX: R97.20 Elevated prostate specific antigen [PSA] (principal) | CPT/HCPCS: 36415; 84153 ==

== ENCOUNTER → 2024-07-31 | Outpatient (CLI) | payer MEDICARE, OTHER, SELFPAY ==
[2024-07-31 08:14] LABS: AST(SGOT) 13 U/L (15-37); Alanine Aminotransfer ALT/SGPT 18 U/L (16-61); Albumin, Serum 3.5 g/dL (3.2-5.0); Alkaline Phosphatase 84 U/L (45-117); Bilirubin, Direct 0.09 mg/dL (0.00-0.30); Cholesterol 224 mg/dL (200); Globulin 3.7 g/dL (2.2-4.2); High Density Lipoprotein 42 mg/dL; Protein, Total 7.2 g/dL (6.4-8.2); Triglycerides 275 mg/dL; Very Low Density Lipoprotein 55 mg/dL (5-40)
== END | disposition home or self-care (01) ==
PROVIDERS: PCP Family Medicine; Referring Provider Physician Assistant Medical; Visit Provider Physician Assistant Medical
DX: E78.5 Hyperlipidemia, unspecified (principal)
CPT/HCPCS: 36415; 80061; 80076

== ENCOUNTER → 2024-09-09 | Outpatient (CLI) | payer MEDICARE, OTHER, SELFPAY ==
--- NOTE | 2024-09-09 09:09 | VDLE_ITS ---
Reason For Study Reason For Study: LLE Pain RIGHT LEFT CFV is compressible, spontaneous, phasic, competent Unable to visualize Lt GSV. Pt has HX of CABG. and demonstrates normal augmentation. CFV is compressible, spontaneous, phasic, competent, Procedure and demonstrates normal augmentation. This is a venous duplex using B-mode, color flow and FV is compressible, spontaneous, phasic, competent spectral Doppler. and demonstrates normal augmentation. Exam performed in department. POP V is compressible, spontaneous, phasic, competent The exam was diagnostic. and demonstrates normal augmentation. A preliminary report was called and/or faxed to G / T/P Trunk is compressible. Alina Reid BLOOD BANK TECHNICIAN. PTV is compressible. LT PerV is compressible. VL/Venous Duplex US, Unilateral Interpretation Summary Deep veins of the left lower extremity are patent and compressible segmentally. There is no evidence of left lower extremity deep vein thrombosis. Valvular competence appears intact within the p roximal deep venous system on the left . The left great saphenous vein appears to be absent. The right common femoral ve in is patent and compressible . Ordering Physician: Alina Reid Referring Physician: Rafael Doe Performed By: Scot Espinoza, ANGIET
== END | disposition home or self-care (01) ==
PROVIDERS: PCP Family Medicine; Referring Provider Physician Assistant Medical; Visit Provider Physician Assistant Medical
DX: M79.605 Pain in left leg (principal); Z95.1 Presence of aortocoronary bypass graft
CPT/HCPCS: 93971

== ENCOUNTER → 2024-11-25 | Outpatient (CLI) | payer MEDICARE, OTHER, SELFPAY ==
[2024-11-25 14:19] LABS: PSA,Total- Diagnostic 4.73 ng/mL (0.00-4.00)
== END | disposition home or self-care (01) ==
LOC: LAB 12:28
PROVIDERS: PCP Family Medicine; Referring Provider Urology; Visit Provider Urology
DX: N40.1 Benign prostatic hyperplasia with lower urinary tract symptoms (principal)
CPT/HCPCS: 36415; 84153

== ENCOUNTER → 2025-05-12 | Outpatient (CLI) | payer MEDICARE, OTHER, SELFPAY | END | disposition home or self-care (01) | LOC: LAB 10:49 | PROVIDERS: PCP Family Medicine; Referring Provider Urology; Visit Provider Urology | DX: R97.20 Elevated prostate specific antigen [PSA] (principal) | CPT/HCPCS: 36415; 84153; 84154 ==

== ENCOUNTER → 2025-05-30 | Outpatient (CLI) | payer MEDICARE, OTHER, SELFPAY ==
[2025-06-02 13:08] LABS: PSA, Free 1.58 ng/mL; PSA, Free % 34.0 % (.); PSA, Total Ultrasensitive 4.650 ng/mL (0.000-4.000)
== END | disposition home or self-care (01) ==
LOC: LAB 12:06
PROVIDERS: PCP Family Medicine; Referring Provider Urology; Visit Provider Urology
DX: R97.20 Elevated prostate specific antigen [PSA] (principal)
CPT/HCPCS: 84153; 84154